=== PATIENT | male | born 1990 | race Caucasian/White ===

== ENCOUNTER 2019-06-27 23:30 | Emergency (ER) | payer OTHER ==
[~2019-06-27] VITALS: Ht 182.9 cm; Wt 99.8 kg
--- OUTSIDE RECORDS SUMMARY | 2019-06-27 23:32 | XMS REPORT | Clinical Summary ---
Author Author [facility] Address Unknown Phone Unavailable Care Team Providers Care Cyber Special Agent Name Role Phone Sharpless PCP Allergies No Known Allergies Medications End Date Status Medication Sig Dispensed Refills Start Date Active diazePAM (VALIUM) 5 MG Take 5 mg by 0 tablet mouth every 6 (six) hours as needed for Anxiety. Active traZODone (DESYREL) 100 Take 100 mg 0 MG tablet by mouth nightly. Active Problems Not on file Social History Date Tobacco Use Types Packs/Day Years Used Never Assessed Sex Assigned at Date Recorded Not on file Industry Job Start Date Occupation Not on file Not on file Not on file Travel End Travel History Travel Start No recent travel history available. Last Filed Vital Signs Not on file Plan of Treatment Not on file Results Not on fileafter 06/26/2018 Insurance Payer Benefit Subscriber ID Type Phone Address Plan / Group MEDICAID - MEDICAID [facility] xxxxxxxxx Medicaid CARE COMM STAR Contracted PLAN amily (Home) [place] [address]
--- OUTSIDE RECORDS SUMMARY | 2019-06-27 23:32 | XMS REPORT ---
Author [facility] Address Unknown Phone Unavailable Care Team Providers Care Social Insurance Specialist Name Role Phone Unavailable Unavailable Payers Payer Name Policy Type Policy Number Effective Date Expiration Date Problems This patient has no known problems. Allergies, Adverse Reactions, Alerts Allergy Name Allergy Type Status Severity Reaction(s) Onset Date Inactive Date Treating Clinician Comments No Known Allergies DA Active U 2017-08-01 00:00:00 Medications This patient has no known medications. Results Test Description Test Time Test Comments Text Results Atomic Results Result Comments - CT ABD PELVIS W/CONT 2019-03-02 00:13:00 Name: BOO CORDERO [facility] : 1990 Age/S: 28 / M [address] [facility] Unit #: [id number] Loc: [place] [address] Phys: Lio Miller DO Acct: [id number] Dis Date: Status: REG ER PHONE #: [phone] Exam Date: 03/01/2019 2354 FAX #: [phone] Reason: lower abd pain/rectal bleed EXAMS: CPT CODE: [id number] CT ABD PELVIS W/CONT 34485 EXAM: - CT ABD PELVIS W/CONT HISTORY: Lower abdominal pain. Rectal bleeding. TECHNIQUE: Axial tomograms through the abdomen and pelvis were obtained after intravenous contrast. Coronal and sagittal reformatted images are provided. This exam was performed according to our departmental dose-optimization program, which includes automated exposure control, adjustment of the mA and/or kV according to patient size and/or use of iterative reconstruction technique. COMPARISON: August 06, 2018. FINDINGS: The visualized lung bases are clear. The liver, spleen, pancreas, adrenal glands and kidneys demonstrate no significant abnormalities. The appendix has a normal appearance. The bowel is unremarkable. Detailed evaluation of bowel is limited on CT. There is no adenopathy or free fluid. The lateral canals are minimally open containing fat. There is no acute osseous abnormality. There is minimal degenerative disc disease at L5-S1 level. IMPRESSION: No significant abnormalities demonstrated. at 0013 Reported and signed by: Murtaza Damico MD PAGE 1 Signed Report (CONTINUED) Name: BOO CORDERO [facility] : 1990 Age/S: 28 / M [address] [facility] Unit #: [id number] Loc: [place] [address] Phys: Lio Miller DO Acct: [id number] Dis Date: Status: REG ER PHONE #: [phone] Exam Date: 03/01/2019 2354 FAX #: [phone] Reason: lower abd pain/rectal bleed EXAMS: CPT CODE: [id number] CT ABD PELVIS W/CONT [id number] <Continued> CC: Lio Miller DO Technologist:DALILA FAYE CTDI: DLP: Trnscb Date/Time: 03/02/2019 (0013) [email or web address] Orig Print D/T: S: 03/02/2019 (0016) CTDI: DLP: PAGE 2 Signed Report HEPATIC FUNCTION PANEL 2019-03-01 21:58:00 TOTAL PROTEIN (test code=PROT) 7.8 gram/dL 6.4-8.2 ALBUMIN (test code=ALB) 4.7 g/dL 3.4-5.0 GLOBULIN (test code=GLOB) 3.1 gram/dL 2.7-4.2 ALBUMIN/GLOBULIN RATIO (test code=A/G) 1.5 0.75-1.50 BILIRUBIN TOTAL (test code=BILT) 0.50 mg/dL 0.0-1.0 BILIRUBIN DIRECT (test code=BILD) 0.07 mg/dL 0.0-0.20 SGOT/AST (test code=AST) 42 IUnit/L 15-37 SGPT/ALT (test code=ALT) 41 IUnit/L 12-78 ALKALINE PHOSPHATASE TOTAL (test code=ALKP) 73 IUnit/L 45-117 Note change in reference range due to change in reagent. BASIC METABOLIC [id number] 20:42:00* Test Item Value Reference Range Comments SODIUM (test code=NA) 139 mmol/L 136-145 POTASSIUM (test code=K) 4.1 mmol/L 3.5-5.1 CHLORIDE (test code=CL) 105.0 mmol/L 98-107 CARBON DIOXIDE (test code=CO2) 28.0 mmol/L 21-32 ANION GAP (test code=GAP) 10.1 10-20 GLUCOSE (test code=GLU) 109 mg/dL 74-106 BLOOD UREA NITROGEN (test code=BUN) 10 mg/dL 7-18 GLOMERULAR FILTRATION RATE (test code=GFR) > 60 mL/min >=60 Estimated GFR by using Modified MDRD formula.Chronic kidney disease is defined as either kidney damageor GFR <60 mL/min/1.73 m2 for >3 months. CREATININE (test code=CREAT) 1.00 mg/dL 0.7-1.3 BUN/CREATININE RATIO (test code=BUN/CREA) 10.0 10-20 CALCIUM (test code=CA) 9.0 mg/dL 8.5-10.1 CBC W/O [id number] 20:26:00* Test Item Value Reference Range Comments WHITE BLOOD CELL (test code=WBC) 8.7 K/mm3 4.5-12.5 RED BLOOD CELL (test code=RBC) 5.12 mill/mm3 4.0-5.8 HEMOGLOBIN (test code=HGB) 15.8 gram/dL 13.0-17.5 HEMATOCRIT (test code=HCT) 46.4 % 42.0-52.0 MEAN CELL VOLUME (test code=MCV) 90.6 fL 80-98 MEAN CELL HGB (test code=MCH) 30.9 picogram 27.0-33.0 MEAN CELL HGB CONCETRATION (test code=MCHC) 34.1 gram/dL 33.0-36.0 RED CELL DISTRIBUTION WIDTH (test code=RDW) 12.5 % 11.6-16.2 PLATELET COUNT (test code=PLT) 206 K/mm3 150-450 MEAN PLATELET VOLUME (test code=MPV) 8.6 fL 6.7-11.0 CBC W/O [id number] 20:25:00* Test Item Value Reference Range Comments WHITE BLOOD CELL (test code=WBC) K/mm3 4.5-12.5 RED BLOOD CELL (test code=RBC) mill/mm3 4.0-5.8 HEMOGLOBIN (test code=HGB) 15.8 gram/dL 13.0-17.5 HEMATOCRIT (test code=HCT) 46.4 % 42.0-52.0 MEAN CELL VOLUME (test code=MCV) fL 80-98 MEAN CELL HGB (test code=MCH) picogram 27.0-33.0 MEAN CELL HGB CONCETRATION (test code=MCHC) gram/dL 33.0-36.0 RED CELL DISTRIBUTION WIDTH (test code=RDW) % 11.6-16.2 PLATELET COUNT (test code=PLT) K/mm3 150-450 MEAN PLATELET VOLUME (test code=MPV) fL 6.7-11.0
--- OUTSIDE RECORDS SUMMARY | 2019-06-27 23:32 | XMS REPORT ---
Author Author Admin, [place] Organization [facility] Adult Medicine Address [address] [address] Phone Allergies, Adverse Reactions, Alerts Allergy Name Reaction Description Start Date Severity Status Provider No Known Allergies Wes Gonzalez MD Conditions or Problems Problem Name Problem Code Onset Date Status Entry Date Provider Comment Standard Description Annotate PTSD Active Edwina Quintero LPC Posttraumatic stress disorder BIPOLAR I DISORDER, CURRENT EPISODE DEPRESSED, IN FULL REMISSION Active Wes Gonzalez MD Bipolar I disorder, most recent episode (or current) depressed, in full remission ANXIETY DISORDER, UNSPECIFIED Active Wes Gonzalez MD Anxiety state, unspecified Back pain 724.5 Active Chance Ibrahim DINING ROOM COORDINATOR-C Backache, unspecified Annual exam V70.0 Active Oumou George MD Routine general medical examination at a health care facility Preventive health care (Tdap) V70.0 Active Oumou George MD Routine general medical examination at a health care facility ANNUAL EXAM V70.0 Active Hillary Sanchez MD Routine general medical examination at a health care facility History of ARTHRALGIA 719.40 Active Hillary Sanchez MD Pain in joint, site unspecified seasonal association with winter BIPOLAR DISORDER NOS IN REMISSION 296.80 Active Wes Gonzalez MD Bipolar disorder, unspecified TOBACCO USER 305.1 Active Wes Gonzalez MD Tobacco use disorder BIPOLAR DISORDER NOS 296.80 Correction Wes Gonzalez MD Bipolar disorder, unspecified Acute Stress Disorder ICD-308.9 Inactive Wes Gonzalez MD BIPOLAR I DISORDER, CURRENT EPISODE DEPRESSED, IN FULL REMISSION Inactive Wes Gonzalez MD Drug seeking behavior ICD-304.90 Inactive Wes Gonzalez MD Influenza, Vaccination Against V04.81 Inactive Oumou George MD Need for prophylactic vaccination and inoculation against influenza Influenza, Vaccination Against ICD-V04.81 Inactive Gurdeep Meza ANXIETY STATE NOS ICD-300.00 Inactive Wse Gonzalez MD DEPRESSIVE DISORDER NOS ICD-311 Inactive Wes Gonzalez MD Acute Stress Disorder 308.9 Resolved Wes Gonzalez MD Unspecified acute reaction to stress BIPOLAR I DISORDER, CURRENT EPISODE DEPRESSED, IN FULL REMISSION Resolved Wes Gonzalez MD Bipolar I disorder, most recent episode (or current) depressed, in full remission Drug seeking behavior 304.90 Resolved Wes Gonzalez MD Unspecified drug dependence, unspecified use 09/23/15: Urine drug screen POSITIVE for Methadone ANXIETY STATE NOS 300.00 Resolved Wes Gonzalez MD Anxiety state, unspecified DEPRESSIVE DISORDER NOS 311 Resolved Wes Gonzalez MD Depressive disorder, not elsewhere classified Medication List Medication Instructions Start Date Stop Date Generic Name NDC Status Provider Patient Instruction DIAZEPAM 5 MG TABS TAKE ONE TABLET BY MOUTH FOUR TIMES DAILY NEEDED FOR ANXIETY DIAZEPAM 03872885652 Active Wes Gonzalez MD Active PRAZOSIN 2MG CAPSULES TAKE 1 CAPSULE BY MOUTH AT BEDTIME PRAZOSIN HCL 35391384176 Active Wes Gonzalez MD Active BUPROPION XL 150MG TABLETS (24 H) TAKE 1 TABLET BY MOUTH DAILY BUPROPION HCL 29075609324 Active Wes Gonzalez MD Active TRAZODONE 100MG TABLETS TAKE 2 TABLETS BY MOUTH AT BEDTIME TRAZODONE HCL 60751968908 Active Jazmine Ralph MD Active VALIUM 10 MG ORAL TABLET Take 1/2 tablet Three Times a Day. VALIUM 10 MG ORAL TABLET 424860 DIAZEPAM Inactive CARBAMAZEPINE ER 100 MG ORAL CAPSULE EXTENDED RELEASE 12 HOUR Take one capsule at bedtime. CARBAMAZEPINE ER 100 MG ORAL CAPSULE EXTENDED RELEASE 12 HOUR CARBAMAZEPINE Inactive ESCITALOPRAM OXALATE 10 MG ORAL TABLET Take 1/2 tablet daily for seven days then take 1 tablet daily thereafter. ESCITALOPRAM OXALATE 10 MG ORAL TABLET 975208 ESCITALOPRAM OXALATE Inactive PRAZOSIN HCL 1 MG ORAL CAPSULE Take one at bedtime. PRAZOSIN HCL 1 MG ORAL CAPSULE 115286 PRAZOSIN HCL Inactive SERTRALINE HCL 50 MG ORAL TABLET Take one-half tablet at bedtime for seven days then take one tablet at bedtime thereafter. SERTRALINE HCL 50 MG ORAL TABLET 357888 SERTRALINE HCL Inactive BENZTROPINE MESYLATE 0.5 MG ORAL TABLET Take one tablet at bedtime. BENZTROPINE MESYLATE 0.5 MG ORAL TABLET 168313 BENZTROPINE MESYLATE Inactive GEODON 20 MG ORAL CAPSULE Take one capsule daily. GEODON 20 MG ORAL CAPSULE 573079 ZIPRASIDONE HCL Inactive VALIUM 5 MG ORAL TABLET take 1 tablet tid as needed for anxiety VALIUM 5 MG ORAL TABLET 529498 DIAZEPAM Inactive ALPRAZOLAM 0.5 MG ORAL TABLET Take one or two tablets daily as needed for severe anxiety. ALPRAZOLAM 0.5 MG ORAL TABLET 483277 ALPRAZOLAM Inactive GEODON 20 MG ORAL CAPSULE Take one at bedtime in addition to geodon 40 mg at bedtime. GEODON 20 MG ORAL CAPSULE 562346 ZIPRASIDONE HCL Inactive GEODON 40 MG ORAL CAPSULE Take one capsules at bedtime. GEODON 40 MG ORAL CAPSULE 482792 ZIPRASIDONE HCL Inactive DIAZEPAM 5 MG ORAL TABLET Take one tablet Three Times a Day by mouth as Needed for anxiety. DIAZEPAM 5 MG ORAL TABLET 19750801 DIAZEPAM Inactive VALIUM 5 MG ORAL TABLET Take one tablet three times a day as needed for anxiety. VALIUM 5 MG ORAL TABLET 19750801 DIAZEPAM Inactive ATIVAN 1 MG ORAL TABLET Take one tablet twice daily. ATIVAN 1 MG ORAL TABLET 772756 LORAZEPAM Inactive VALIUM 5 MG ORAL TABLET Take 1 tablet three times daily as needed for anxiety. VALIUM 5 MG ORAL TABLET 19750801 DIAZEPAM Inactive TRAZODONE HCL 50 MG ORAL TABLET Take one half to one tablet at bedtime for sleep. TRAZODONE HCL 50 MG ORAL TABLET 196620 TRAZODONE HCL Inactive KLONOPIN 0.5 MG ORAL TABLET Take one tablet twice a day as needed for anxiety. KLONOPIN 0.5 MG ORAL TABLET 567739 CLONAZEPAM Inactive WELLBUTRIN XL 150 MG ORAL TABLET EXTENDED RELEASE 24 HOUR Take one tablet daily WELLBUTRIN XL 150 MG ORAL TABLET EXTENDED RELEASE 24 HOUR BUPROPION HCL Inactive VALIUM 5 MG ORAL TABLET Take one tablet twice a day as needed for anxiety. VALIUM 5 MG ORAL TABLET 19750801 DIAZEPAM Inactive WELLBUTRIN SR 200 MG ORAL TABLET EXTENDED RELEASE 12 HOUR Take one tablet daily. WELLBUTRIN SR 200 MG ORAL TABLET EXTENDED RELEASE 12 HOUR BUPROPION HCL Inactive ACETAMINOPHEN-CODEINE #3 300-30 MG ORAL TABLET 1-2 tablets by mouth every 4 hours as needed for pain ACETAMINOPHEN-CODEINE #3 300-30 MG ORAL TABLET ACETAMINOPHEN-CODEINE Inactive AMOXICILLIN 500 MG ORAL CAPSULE AMOXICILLIN 500 MG ORAL CAPSULE 804224 AMOXICILLIN Inactive BUSPIRONE HCL 15 MG ORAL TABLET Take one tablet at bedtime. May take an additional tablet during the day as needed for anxiety. BUSPIRONE HCL 15 MG ORAL TABLET 867322 BUSPIRONE HCL Inactive GEODON 60 MG ORAL CAPSULE Take one tab at bedtime in addition to geodon 40 mg capsule every morning. GEODON 60 MG ORAL CAPSULE 215664 ZIPRASIDONE HCL Inactive WELLBUTRIN SR 100 MG ORAL TABLET EXTENDED RELEASE 12 HOUR Take two tablets daily. WELLBUTRIN SR 100 MG ORAL TABLET EXTENDED RELEASE 12 HOUR BUPROPION HCL Inactive VALIUM 10 MG ORAL TABLET Take 1/2 tablet Three Times a Day. DIAZEPAM 02131839146 No Longer Active Wes Gonzalez MD Active CARBAMAZEPINE ER 100 MG ORAL CAPSULE EXTENDED RELEASE 12 HOUR Take one capsule at bedtime. CARBAMAZEPINE 72712368959 No Longer Active Wes Gonzalez MD Active ESCITALOPRAM OXALATE 10 MG ORAL TABLET Take 1/2 tablet daily for seven days then take 1 tablet daily thereafter. ESCITALOPRAM OXALATE 98283872175 No Longer Active Wes Gonzalez MD Active PRAZOSIN HCL 1 MG ORAL CAPSULE Take one at bedtime. PRAZOSIN HCL 83762683549 No Longer Active Wes Gonzalez MD Active SERTRALINE HCL 50 MG ORAL TABLET Take one-half tablet at bedtime for seven days then take one tablet at bedtime thereafter. SERTRALINE HCL 53373047970 No Longer Active Wes Gonzalez MD Active BENZTROPINE MESYLATE 0.5 MG ORAL TABLET Take one tablet at bedtime. BENZTROPINE MESYLATE 86757123319 No Longer Active Wes Gonzalez MD Active GEODON 20 MG ORAL CAPSULE Take one capsule daily. ZIPRASIDONE HCL 74048406831 No Longer Active Wes Gonzalez MD Active VALIUM 5 MG ORAL TABLET take 1 tablet tid as needed for anxiety DIAZEPAM 92768004484 No Longer Active Wes Gonzalez MD Active ALPRAZOLAM 0.5 MG ORAL TABLET Take one or two tablets daily as needed for severe anxiety. ALPRAZOLAM 95840581073 No Longer Active Laly Servin MD Active GEODON 20 MG ORAL CAPSULE Take one at bedtime in addition to geodon 40 mg at bedtime. ZIPRASIDONE HCL 65040608633 No Longer Active Wes Gonzalez MD Active GEODON 40 MG ORAL CAPSULE Take one capsules at bedtime. ZIPRASIDONE HCL 92370060458 No Longer Active Wes Gonzalez MD Active DIAZEPAM 5 MG ORAL TABLET Take one tablet Three Times a Day by mouth as Needed for anxiety. DIAZEPAM 76270918921 No Longer Active Wes Gonzalez MD Active VALIUM 5 MG ORAL TABLET Take one tablet three times a day as needed for anxiety. DIAZEPAM 52307241382 No Longer Active Wes Gonzalez MD Active ATIVAN 1 MG ORAL TABLET Take one tablet twice daily. LORAZEPAM 01940892694 No Longer Active Wes Gonzalez MD Active VALIUM 5 MG ORAL TABLET Take 1 tablet three times daily as needed for anxiety. DIAZEPAM 95153817772 No Longer Active Wes Gonzalez MD Active TRAZODONE HCL 50 MG ORAL TABLET Take one half to one tablet at bedtime for sleep. TRAZODONE HCL 32697340898 No Longer Active Wes Gonzalez MD Active KLONOPIN 0.5 MG ORAL TABLET Take one tablet twice a day as needed for anxiety. CLONAZEPAM 44231363155 No Longer Active Wes Gonzalez MD Active WELLBUTRIN XL 150 MG ORAL TABLET EXTENDED RELEASE 24 HOUR Take one tablet daily BUPROPION HCL 64033577870 No Longer Active Wes Gonzalez MD Active VALIUM 5 MG ORAL TABLET Take one tablet twice a day as needed for anxiety. DIAZEPAM 88075688015 No Longer Active Wes Gonzalez MD Active WELLBUTRIN SR 200 MG ORAL TABLET EXTENDED RELEASE 12 HOUR Take one tablet daily. BUPROPION HCL 85905583030 No Longer Active Wes Gonzalez MD Active ACETAMINOPHEN-CODEINE #3 300-30 MG ORAL TABLET 1-2 tablets by mouth every 4 hours as needed for pain ACETAMINOPHEN-CODEINE 57974760100 No Longer Active Wes Gonzalez MD Active AMOXICILLIN 500 MG ORAL CAPSULE AMOXICILLIN 11380290314 No Longer Active Oumou George MD Active BUSPIRONE HCL 15 MG ORAL TABLET Take one tablet at bedtime. May take an additional tablet during the day as needed for anxiety. BUSPIRONE HCL 04099229039 No Longer Active Wes Gonzalez MD Active GEODON 60 MG ORAL CAPSULE Take one tab at bedtime in addition to geodon 40 mg capsule every morning. ZIPRASIDONE HCL 31271271991 No Longer Active Wes Gonzalez MD Active WELLBUTRIN SR 100 MG ORAL TABLET EXTENDED RELEASE 12 HOUR Take two tablets daily. BUPROPION HCL 75327705315 No Longer Active Wes Gonzalez MD Active Immunizations Vaccine Administration Date Value Standard Description influenza immunization (Flu Vax) has been administered given influenza virus vaccine, unspecified formulation Tetanus toxoid, reduced diphtheria toxoid and acellular Pertussis vaccine, absorbed (TdaP) given given tetanus toxoid, reduced diphtheria toxoid, and acellular pertussis vaccine, adsorbed Vital Signs Date Name Value Unit Range Description blood pressure, diastolic 86 mm[Hg] BP rosa blood pressure, systolic 136 mm[Hg] BP sys height E&M 71 [in_us] Bdy height pulse rate E&M 116 /min Heart rate weight E&M 235.20 [lb_av] Weight Measured blood pressure, diastolic 84 mm[Hg] BP rosa blood pressure, systolic 131 mm[Hg] BP sys height E&M 71 [in_us] Bdy height pulse rate E&M 78 /min Heart rate weight E&M 240.60 [lb_av] Weight Measured blood pressure, diastolic 89 mm[Hg] BP rosa blood pressure, systolic 114 mm[Hg] BP sys height E&M 71 [in_us] Bdy height pulse rate E&M 84 /min Heart rate weight E&M 235.20 [lb_av] Weight Measured blood pressure, diastolic 84 mm[Hg] BP rosa blood pressure, systolic 138 mm[Hg] BP sys height E&M 71 [in_us] Bdy height pulse rate E&M 97 /min Heart rate weight E&M 227.40 [lb_av] Weight Measured blood pressure, diastolic 85 mm[Hg] BP rosa blood pressure, systolic 123 mm[Hg] BP sys height E&M 71 [in_us] Bdy height pulse rate E&M 114 /min Heart rate weight E&M 218.20 [lb_av] Weight Measured blood pressure, diastolic 75 mm[Hg] BP rosa blood pressure, systolic 109 mm[Hg] BP sys height E&M 71 [in_us] Bdy height pulse rate E&M 91 /min Heart rate weight E&M 219.20 [lb_av] Weight Measured Diagnostic Results Date Name Value Unit Range Description Lab Report: DRUG AND ALCOHOL SCREEN, S/P, DRUG ABUSE PANEL 9, SERUM, [place] ... - Toxicology benzodiazepine screen, urine POSITIVE Lab Report: CBC With Differential/Platelet, Comp. Metabolic Panel (14), ... - Chemistry thyroid stimulating hormone, serum 1.050 u[iU]/mL 0.450-4.500 Lab Report: DRUG AND ALCOHOL SCREEN, S/P, DRUG ABUSE PANEL 9, SERUM, [place] ... - Urinalysis Methadone screen, urine NEGATIVE Lab Report: CBC With Differential/Platelet, Comp. Metabolic Panel (14), ... - Chemistry very low density lipoproteins 27 mg/dL 5-40 Lab Report: TSH+Free T4, CBC With Differential/Platelet, Comp. Metabolic ... - Chemistry hepatitis B surface antigen Negative Negative Lab Report: DRUG AND ALCOHOL SCREEN, S/P, DRUG ABUSE PANEL 9, [facility]UM, [place] ... - Toxicology phencyclidine screen, urine NEGATIVE ng/mL Lab Report: CBC With Differential/Platelet, Comp. Metabolic Panel (14), ... - Chemistry chloride, serum 98 mmol/L 97-108 urea nitrogen, blood 8 mg/dL 6-20 Lab Report: TSH+Free T4, CBC With Differential/Platelet, Comp. Metabolic ... - Serology HIV-1/HIV-2 Ab, serum Non Reactive Non Reactive Lab Report: CBC With Differential/Platelet, Comp. Metabolic Panel (14), ... - Hematology Quantiferon Gold TB blood test for tuberculosis screening Negative Negative mean corpuscular hemoglobin concentration, RBC 34.0 G/DL % 31.5-35.7 Lab Report: TSH+Free T4, CBC With Differential/Platelet, Comp. Metabolic ... - Serology antinuclear antibody Negative Negative Lab Report: CBC With Differential/Platelet, Comp. Metabolic Panel (14), ... - Hematology erythrocyte (RBC) count 4.77 X10E6/UL 10*6/mm3 4.14-5.80 Lab Report: CBC With Differential/Platelet, Comp. Metabolic Panel (14), ... - Serology hepatitis C antibody, serum <0.1 0.0-0.9 Lab Report: CBC With Differential/Platelet, Comp. Metabolic Panel (14), ... - Chemistry Absolute Neutrophils 5.3 X10E3/UL 10*3/uL 1.4-7.0 Lab Report: CBC With Differential/Platelet, Comp. Metabolic Panel (14), ... - Hematology erythrocyte sedimentation rate 12 mm/h 0-15 Lab Report: CBC With Differential/Platelet, Comp. Metabolic Panel (14), ... - Chemistry LDL cholesterol, serum 78 mg/dL 0-99 urea nitrogen/creatinine ratio, serum 7 8-19 Lab Report: CBC With Differential/Platelet, Comp. Metabolic Panel (14), ... - Hematology mean corpuscular volume, RBC 89 fL 79-97 Nurse Visit: Lab/ X-Ray Only - Urinalysis Ecstasy (MDMA) Screen, urine Negative Lab Report: CBC With Differential/Platelet, Comp. Metabolic Panel (14), ... - Chemistry HDL cholesterol, serum 35 mg/dL >39 Lab Report: DRUG ABUSE PANEL 10-50 + ETHANOL - Chemistry alcohol, urine NEGATIVE mg/dL Nurse Visit: Lab/ X-Ray Only - Urinalysis Oxycodone urine screening Negative Lab Report: CBC With Differential/Platelet, Comp. Metabolic Panel (14), ... - Hematology monocytes as percent of blood leukocytes 5 % Lab Report: CBC With Differential/Platelet, Comp. Metabolic Panel (14), ... - Chemistry albumin/globulin ratio, serum 1.8 1.1-2.5 creatinine, serum 1.21 mg/dL 0.76-1.27 Lab Report: DRUG AND ALCOHOL SCREEN, S/P, DRUG ABUSE PANEL 9, [facility]UM, [place] ... - Toxicology methaqualone screen, urine NEGATIVE ng/mL Lab Report: CBC With Differential/Platelet, Comp. Metabolic Panel (14), ... - Chemistry cholesterol, serum 140 mg/dL 092-715 8771/10/27 bilirubin, serum, total 0.4 mg/dL 0.0-1.2 Lab Report: CBC With Differential/Platelet, Comp. Metabolic Panel (14), ... - Hematology Eosinophil Absolute Count 0.2 X10E3/UL 10*3/uL 0.0-0.4 Lab Report: Chlamydia/GC Amplification - Lab chlamydia DNA probe Negative Negative Lab Report: CBC With Differential/Platelet, Comp. Metabolic Panel (14), ... - Chemistry aspartate aminotransferase (SGOT), serum 23 U/L 0-40 Lab Report: CBC With Differential/Platelet, Comp. Metabolic Panel (14), ... - Hematology red blood cell distribution width 13.7 % 12.3-15.4 leukocyte count, blood 8.1 X10E3/UL 10*3/mm3 3.4-10.8 Lab Report: CBC With Differential/Platelet, Comp. Metabolic Panel (14), ... - Chemistry potassium, serum 3.9 mmol/L 3.5-5.2 albumin, serum 4.8 g/dL 3.5-5.5 immature granulocytes, percentage of total cells, blood 0 % Lab Report: DRUG AND ALCOHOL SCREEN, S/P, DRUG ABUSE PANEL 9, [facility]UM, [place] ... - Toxicology opiates, urine, semiquantitative NEGATIVE Lab Report: CBC With Differential/Platelet, Comp. Metabolic Panel (14), ... - Hematology lymphocyte count, blood, automated 2.2 X10E3/UL 10*3/mm3 0.7-3.1 hematocrit, blood 42.6 % 37.5-51.0 Lab Report: Chlamydia/GC Amplification - Microbiology Neisseria gonorrhoeae DNA probe Negative Negative Lab Report: CBC With Differential/Platelet, Comp. Metabolic Panel (14), ... - Chemistry sodium, serum 139 mmol/L 134-144 Lab Report: DRUG AND ALCOHOL SCREEN, S/P, DRUG ABUSE PANEL 9, SERUM, [place] ... - Toxicology amphetamine screen, urine NEGATIVE Lab Report: CBC With Differential/Platelet, Comp. Metabolic Panel (14), ... - Hematology neutrophils as percent of blood leukocytes 66 % basophils as percent of blood leukocytes 0 % Lab Report: DRUG AND ALCOHOL SCREEN, S/P, DRUG ABUSE PANEL 9, SERUM, [place] ... - Chemistry propoxyphene screen, urine NEGATIVE Lab Report: CBC With Differential/Platelet, Comp. Metabolic Panel (14), ... - Serology rapid plasma reagin antibody, serum Non Reactive Non Reactive Lab Report: DRUG AND ALCOHOL SCREEN, S/P, DRUG ABUSE PANEL 9, SERUM, [place] ... - Chemistry cannabinoid screen, urine NEGATIVE ng/mL Lab Report: CBC With Differential/Platelet, Comp. Metabolic Panel (14), ... - Chemistry carbon dioxide, venous blood 21 mmol/L 18-29 triglyceride, serum, fasting 134 mg/dL 0-149 calcium, serum 9.3 mg/dL 8.7-10.2 alanine aminotransferase (SGPT), serum 25 U/L 0-44 Lab Report: CBC With Differential/Platelet, Comp. Metabolic Panel (14), ... - Hematology mean corpuscular hemoglobin, RBC 30.4 pg 26.6-33.0 Lab Report: CBC With Differential/Platelet, Comp. Metabolic Panel (14), ... - Chemistry protein, total, serum 7.5 g/dL 6.0-8.5 alkaline phosphatase, serum 68 U/L 39-117 Lab Report: CBC With Differential/Platelet, Comp. Metabolic Panel (14), ... - Hematology hemoglobin, blood 14.5 g/dL 12.6-17.7 lymphocytes as percent of blood leukocytes 27 % Lab Report: CBC With Differential/Platelet, Comp. Metabolic Panel (14), ... - Chemistry hemoglobin A1C, blood, as % of total hemoglobin 5.3 % 4.8-5.6 Lab Report: DRUG AND ALCOHOL SCREEN, S/P, DRUG ABUSE PANEL 9, [place], [place] ... - Toxicology barbiturates screen, urine NEGATIVE Lab Report: CBC With Differential/Platelet, Comp. Metabolic Panel (14), ... - Genetics/fertility eGFR if 96 mL/min/1.73m2 >59 Lab Report: DRUG AND ALCOHOL SCREEN, S/P, DRUG ABUSE PANEL 9, [place], [place] ... - Urinalysis Drug Screen Results, Urine * These results are for medical treatment only.... Lab Report: CBC With Differential/Platelet, Comp. Metabolic Panel (14), ... - Hematology basophil count, absolute 0.0 x10E3/uL 0.0-0.2 Lab Report: TSH+Free T4, CBC With Differential/Platelet, Comp. Metabolic ... - Chemistry thyroxine, serum, free 1.17 ng/dL 0.82-1.77 Lab Report: CBC With Differential/Platelet, Comp. Metabolic Panel (14), ... - Chemistry globulin, serum 2.7 1.5-4.5 Estimated Glomerular Filtration Rate (calc) 83 mL/min/1.73m2 >59 Lab Report: TSH+Free T4, CBC With Differential/Platelet, Comp. Metabolic ... - Chemistry vitamin D 25-hydroxy, serum 28.8 ng/mL 30.0-100.0 Lab Report: CBC With Differential/Platelet, Comp. Metabolic Panel (14), ... - Hematology eosinophils as percent of blood leukocytes 2 % Lab Report: CBC With Differential/Platelet, Comp. Metabolic Panel (14), ... - Chemistry blood glucose, random 85 mg/dL 65-99 Lab Report: CBC With Differential/Platelet, Comp. Metabolic Panel (14), ... - Serology rheumatoid factor 6.6 [iU]/mL 0.0-13.9 Lab Report: CBC With Differential/Platelet, Comp. Metabolic Panel (14), ... - Hematology monocyte count, blood, automated 0.4 X10E3/UL 10*3/uL 0.1-0.9 Lab Report: DRUG AND ALCOHOL SCREEN, S/P, DRUG ABUSE PANEL 9, [facility]UM, [place] ... - Toxicology benzoylecgonine screen, urine NEGATIVE ng/mL Lab Report: CBC With Differential/Platelet, Comp. Metabolic Panel (14), ... - Hematology platelet count 210 X10E3/UL 10*3/mm3 150-379 Encounters Date Encounter Provider Code Facility 17:21:31 CDT Est Patient Detailed - [id number] Wes Gonzalez MD CPT-45459 [facility] 16:37:01 CDT Est Patient Detailed - [id number] Wes Gonzalez MD CPT-94964 [facility] 12:18:22 CDT Est Patient Detailed - [id number] Wes Gonzalez MD CPT-58745 [facility] 12:36:59 [employer] Est Patient Detailed - 35477 Wes Gonzalez MD CPT-28633 [facility] 15:18:02 CDT Est Patient Detailed - [id number] Wes Gonzalez MD CPT-55254 [facility] 14:48:32 CDT Est Patient Detailed - 08886 Wes Gonzalez MD CPT-94571 [facility] 14:03:37 CDT Est Patient Exp Problem - 75580 Wes Gonzalez MD CPT-97701 [facility] 18:08:28 CDT Est Patient Detailed - 51898 Wes Gonzalez MD CPT-60791 [facility] 08:42:47 CDT Est Patient Detailed - 07969 Wes Gonzalez MD CPT-63030 [facility] 15:23:50 [employer] Est Patient Detailed - 43041 Wes Gonzalez MD CPT-45296 [facility] 15:45:57 [employer] Est Patient Detailed - [id number] Wes Gonzalez MD CPT-20074 [facility] 16:40:23 [employer] Est Patient Detailed - 70411 Wes Gonzalez MD CPT-39350 [facility] 17:19:00 CDT Est Patient Exp Problem - 11175 Wes Gonzalez MD CPT-73079 [facility] 14:55:14 CDT Est Patient Exp Problem - 76380 Wes Gonzalez MD CPT-61496 [facility] 13:51:49 [employer] Est Patient Exp Problem - [id number] Wes Gonzalez MD CPT-18046 [facility] 15:27:16 [employer] Est Patient Exp Problem - 51261 Wes Gonzalez MD CPT-32090 [facility] 15:23:00 [employer] Est Patient Exp Problem - 05003 Wes Gonzalez MD CPT-74713 [facility] 15:37:00 CDT Est Patient Exp Problem - 60788 Wes Gonzalez MD CPT-80506 [facility] 15:15:15 CDT Est Patient Exp Problem - 59849 Wes Gonzalez MD CPT-91979 [facility] 10:29:27 CDT Est Patient Exp Problem - 76766 Chance Ibrahim DINING ROOM COORDINATOR-C CPT-55943 [facility] 16:24:35 CDT Est Patient Exp Problem - 53254 Wes Gonzalez MD CPT-09119 [facility] 12:35:34 [employer] Est Patient Exp Problem - 80185 Wes Gonzalez MD CPT-01590 [facility] 15:22:17 [employer] Est Patient Exp Problem - 86842 Wes Gonzalez MD CPT-49392 [facility] 09:25:32 [employer] Est Patient Exp Problem - 79189 Wes Gonzalez MD CPT-23735 [facility] 10:57:40 CDT Est Patient Detailed - 18347 Oumou George MD CPT-99150 [facility] 13:34:26 CDT Est Patient Exp Problem - 79433 Wes Gonzalez MD CPT-82637 [facility] 13:32:45 CDT Est Patient Exp Problem - 90734 Wes Gonzalez MD CPT-85492 [facility] 11:08:30 [employer] Est Patient Exp Problem - 32858 Wes Gonzalez MD CPT-52107 [facility] 14:35:09 [employer] Est Patient Exp Problem - 66267 Wes Gonzalez MD CPT-54741 [facility] 14:21:17 [employer] Est Patient Exp Problem - 21118 Wes Gonzalez MD CPT-90116 [facility] 16:47:53 CDT Est Patient Exp Problem - 99353 Wes Gonzalez MD CPT-00188 [facility] Behavioral Health 11:22:03 CDT Est Patient Problem Focus - [id number] Hillary Sanchez MD CPT-26265 [facility] Adult Medicine 15:11:51 CDT Est Patient Exp Problem - [id number] Wes Gonzalez MD CPT-04710 [facility] Behavioral Health 16:38:04 CDT Est Patient Exp Problem - [id number] Wes Gonzalez MD CPT-21105 [facility] 16:41:27 CDT Est Patient Exp Problem - 70611 Wes Gonzalez MD CPT-81440 [facility] Behavioral Health 16:05:31 [employer] Est Patient Exp Problem - [id number] Wes Gonzalez MD CPT-57579 [facility] Behavioral Health 12:11:08 CDT Est Patient Exp Problem - [id number] Wes Gonzalez MD CPT-75886 [facility] 08:21:21 CDT Est Patient Exp Problem - 57503 Wes Gonzalez MD CPT-44749 [facility] 13:13:51 CDT Est Patient Exp Problem - 30304 Wes Gonzalez MD CPT-07253 [facility] 16:41:21 CDT Est Patient Exp Problem - [id number] Wes Gonzalez MD CPT-00121 [facility] 20:35:14 CDT Est Patient Detailed - 14034 Wes Gonzalez MD CPT-65915 [facility] 20:58:45 CDT Est Patient Detailed - [id number] Wes Gonzalez MD CPT-49588 [facility] Behavioral Health Procedures Code Procedure Name Date Entry Date Standard Description CPT-04558 Psychotherapy 45 (38-52*) min - 59172 (with patient and/or family member) 09:07:01 CDT CPT-17404 Psychotherapy 45 (38-52*) min - 02751 (with patient and/or family member) 09:34:13 CDT CPT-93706 Psychotherapy 45 (38-52*) min - 95185 (with patient and/or family member) 22:22:15 [employer] CPT-08837 Psychotherapy 45 (38-52*) min - 36938 (with patient and/or family member) 21:12:14 [employer] CPT-81538 Psychotherapy 60 (53+*) min - 45700 (with patient and/or family member) 20:39:47 [employer] CPT-21376 Diagnostic evaluation (no medical) - 06178 12:42:59 [employer] CPT-70248 Influenza - Adult - Injection 10:58:02 CDT CPT-95827 TDAP 10:58:02 CDT CPT-27417 Admin of Vaccine - Injection - Each Add'l 10:58:02 CDT CPT-03913 Admin of Vaccine - Injection - 1 10:58:02 CDT CPT-67897 Urine Drug Screen - In House 14:30:46 CDT CPT-87370 Urine Drug Screen - In House 14:29:20 CDT CPT-87839 Urine Drug Screen - In House 14:22:24 CDT CPT-09871 Handling of specimen for transfer 10:57:42 CDT CPT-67122 Venipuncture 10:57:42 CDT CPT-64923 Urine Drug Screen - In House 10:57:41 CDT CPT-01274 Urinalysis - Dip only - In House 10:57:41 CDT CPT-43657 Handling of specimen for transfer 11:22:03 CDT CPT-27218 Venipuncture 11:22:03 CDT CPT-53642 Psychotherapy 45 (38-52*) min - 27105 (with patient and/or family member) 14:42:42 [employer] CPT-91238 Psychotherapy 45 (38-52*) min - 69200 (with patient and/or family member) 16:15:15 [employer] CPT-99784 Diagnostic evaluation (no medical) - 73767 15:37:20 CDT CPT-33676 Diagnostic evaluation with medical - 85967 11:58:55 CDT
[2019-06-27] MEDS: DICYCLOMINE HCL 20 MG/2 ML VIAL IM ONE (23:48)
[2019-06-27] MEDS: ACETAMINOPHEN 325 MG TAB PO ONE (23:48)
[2019-06-27] MEDS: PANTOPRAZOLE 40 MG 10ML VIAL IV STA (23:48)
--- NOTE | 2019-06-27 23:53 | NUR ---
PT TO RESTROOM FOR URINE COLLECTION.
[2019-06-27 23:57] LABS: BASOPHILS % 0.1 % (0.0-1.0); EOSINOPHILS # (AUTO) 0.1 (0.0-0.4); EOSINOPHILS % 0.9 % (0.0-6.0); HEMATOCRIT 47.8 % (38.2-49.6); HEMOGLOBIN 16.2 g/dL (14.0-18.0); LYMPHOCYTES # (AUTO) 0.8 (1.0-3.2); LYMPHOCYTES % 8.4 % (18.0-39.1); MEAN CORPUSCULAR HEMOGLOBIN 30.1 pg (28-32); MEAN CORPUSCULAR HGB CONC 33.9 g/dL (31-35); MEAN CORPUSCULAR VOLUME 88.7 fL (81-99); MONOCYTES # (AUTO) 0.3 (0.2-0.8); MONOCYTES % 3.7 % (4.4-11.3); NEUTROPHILS # (AUTO) 7.7 (2.1-6.9); NEUTROPHILS % 86.6 % (38.7-80.0); PLATELET COUNT 175 x10e3/uL (140-360); RED BLOOD COUNT 5.39 x10e6/uL (4.3-5.7); RED CELL DISTRIBUTION WIDTH 12.1 % (11.7-14.4)
[2019-06-28 00:15] LABS: BILIRUBIN,URINE SMALL (NEGATIVE); CLARITY,URINE CLEAR (CLEAR); COLOR,URINE YELLOW (YELLOW); KETONES,URINE NEGATIVE (NEGATIVE); LEUKOCYTE ESTERASE ,URINE NEGATIVE (NEGATIVE); NITRITE,URINE NEGATIVE (NEGATIVE); PROTEIN,URINE DIPSTICK NEGATIVE (NEGATIVE); URINE UROBILINOGEN 0.2 mg/dL (0.2 - 1)
--- NOTE | 2019-06-28 00:26 | Diagnostic Imaging Report ---
EXAMINATION: ABDOMEN ACUTE SERIES W/PA CXR INDICATION: ^abd pain ^[id number] ^2355 ^Y COMPARISON: None FINDINGS: PA and lateral views TUBES and LINES: None. LUNGS: Lungs are well inflated. There is no evidence of pneumonia or pulmonary edema. PLEURA: No pleural effusion or pneumothorax. HEART AND MEDIASTINUM: The cardiomediastinal silhouette is unremarkable. BONES AND SOFT TISSUES: No acute osseous lesion. Soft tissues are unremarkable. ABDOMEN: Nonobstructive bowel gas pattern. No evidence of pneumoperitoneum. IMPRESSION: Nonobstructive bowel gas pattern. No acute thoracic abnormality. Signed by: Dr. Preston Goodwin MD on 06/28/2019 12:23 AM
[2019-06-28 00:27] LABS: ALANINE AMINOTRANSFERASE 38 IU/L (0-55); ALBUMIN 4.8 g/dL (3.5-5.0); ALBUMIN/GLOBULIN RATIO 1.5 (0.8-2.0); ALKALINE PHOSPHATASE 72 IU/L (40-150); ANION GAP 15.8 mmol/L (8-16); BLOOD UREA NITROGEN 15 mg/dL (7-26); BUN/CREATININE RATIO 14 (6-25); CALCIUM 9.8 mg/dL (8.4-10.2); CARBON DIOXIDE 27 mmol/L (22-29); CHLORIDE 101 mmol/L (98-107); CREATININE, SERUM 1.07 mg/dL (0.72-1.25); EST GLOMERULAR FILTRATION RATE > 60 ML/MIN (60-); GLUCOSE 82 mg/dL (74-118); POTASSIUM 3.8 mmol/L (3.5-5.1); SODIUM 140 mmol/L (136-145)
[2019-06-28 00:27] LABS: BACTERIA,URINE MODERATE /HPF; EPITHELIAL CELLS,URINE FEW /LPF; MUCUS,URINE MANY (RARE)
[2019-06-28 00:28] LABS: PHENCYCLIDINE SCREEN,URINE NEGATIVE (NEGATIVE)
[2019-06-28 00:29] LABS: AMPHETAMINES SCREEN,URINE NEGATIVE (NEGATIVE); BENZODIAZEPINES SCREEN,URINE POSITIVE (NEGATIVE)
[2019-06-28 00:50] LABS: AMYLASE 52 U/L (25-125); LIPASE 39 U/L (8-78)
[2019-06-28] MEDS ORDERED: TYLENOL # 31 EA PO (00:52)
[2019-06-28] MEDS ORDERED: PRAZOSIN HCL2 MG PO (00:52)
[2019-06-28] MEDS ORDERED: BUTALB-ACETAMI1 EACH PO (00:52)
[2019-06-28] MEDS ORDERED: TRAZODONE HCL100 MG PO (00:52)
[2019-06-28] MEDS ORDERED: DIAZEPAM5 MG PO (00:52)
[2019-06-28] MEDS ORDERED: BUPROPION XL150 MG PO (00:52)
== END 2019-06-28 01:28 | disposition home or self-care (01) ==
LOC: ER 23:30
DX: R10.13 Epigastric pain (principal); A08.4 Viral intestinal infection, unspecified; F32.9 Major depressive disorder, single episode, unspecified; F43.12 Post-traumatic stress disorder, chronic
CPT/HCPCS: 36415; 74022; 80053; 80307; 81001; 82150; 83690; 85025; 96372; 96374; 99284; J0500

== ENCOUNTER 2019-09-16 02:47 | Emergency (ER) | payer OTHER ==
[~2019-09-16] VITALS: Ht 182.9 cm; Wt 99.8 kg
[~2019-09-16 02:47] MED LIST: BUPROPION XL150 MG PO; BUTALB-ACETAMI1 EACH PO; DIAZEPAM5 MG PO; PRAZOSIN HCL2 MG PO; TRAZODONE HCL100 MG PO; TYLENOL # 31 EA PO
--- OUTSIDE RECORDS SUMMARY | 2019-09-16 02:51 | XMS REPORT ---
Author Author Admin, [place] Organization Unknown Address Unknown Phone Unavailable PROBLEMS Condition Status Date Provider Notes PTSD active Edwina Quintero Acute Stress Disorder completed - Wes Gonzalez BIPOLAR I DISORDER, CURRENT EPISODE DEPRESSED, IN FULL REMISSION active Wes Gonzalez ANXIETY DISORDER, UNSPECIFIED active Wes Gonzalez BIPOLAR I DISORDER, CURRENT EPISODE DEPRESSED, IN FULL REMISSION completed - Wes Gonzalez Back pain active Chance Ibrahim Preventive health care (Tdap) active Gurdeep Meza Influenza, Vaccination Against completed - Gurdeep Meza Drug seeking behavior completed - Wes Gonzalez 09/23/15: Urine drug screen POSITIVE for Methadone Annual exam active Gurdeep Meza ANNUAL EXAM active Hillayr Sanchez ARTHRALGIA active Hillary Sanchez seasonal association with winter ANXIETY STATE NOS completed - Wes Gonzalez DEPRESSIVE DISORDER NOS completed - Wes Gonzalez BIPOLAR DISORDER NOS IN REMISSION active Wes Gonzalez ENCOUNTERS Date Type Provider Location Encounter Diagnosis - Ambulatory Encounter Edwina Quintero [facility] UNK - Ambulatory Encounter Wes Gonzalez [facility] UNK - Ambulatory Encounter Thida Gilliland [facility] UNK - Ambulatory Encounter Wes Gonzalez Thida Gilliland Sherry Carrillo [facility] UNK - Ambulatory Encounter Wes Gonzalez [facility] Behavior[facility] UNK - Ambulatory Encounter Wes Masters Wes Masters Alison Faustin [facility] UNK - Ambulatory Encounter Thida Gilliland [facility] Contact Center UNK - Ambulatory Encounter Wes Masters Wes Masters Thida Gilliland Mallory Weems [facility] Contact Center UNK - Ambulatory Encounter Thida Gilliland [facility] Contact Center UNK - Ambulatory Encounter Wes Masters Wes Masters Thida Gilliland Mallory Weems [facility] Contact Center UNK - Ambulatory Encounter Wes Masters Wes Masters [facility] Behavioral [facility] UNK - Ambulatory Encounter Wes Masters Wes Masters [facility] Behavioral [facility] UNK - Ambulatory Encounter Wes Masters Wes Masters [facility] Behavior[facility] UNK - Ambulatory Encounter Wes Masters Wes Masters Monico Ayesha [facility] Behavior[facility] UNK - Ambulatory Encounter Wes Masters Wes Masters Jazmine Ralph [facility] Behavior[facility] UNK - Ambulatory Encounter Thida Gilliland [facility] Behavior[facility] UNK - Ambulatory Encounter Wes Masters Wes Masters Thida Gilliland [facility] Behavior[facility] UNK - Ambulatory Encounter Ews Masters Wes Masters [facility] Behavior[facility] UNK - Ambulatory Encounter Wes Masters Wes Masters Monico Ayesha [facility] Behavior[facility] UNK - Ambulatory Encounter Wes Masters Wes Masters [facility] Behavior[facility] UNK - Ambulatory Encounter Wes Masters Wes Masters [facility] Behavior[facility] UNK - Ambulatory Encounter Wes Masters Wes Masters [facility] Behavior[facility] UNK - Ambulatory Encounter Wes Masters Wes Masters [facility] Behavior[facility] UNK - Ambulatory Encounter Thida Gilliland [facility] Contact Center UNK - Ambulatory Encounter Wes Masters Wes Masters Thida Gilliland Roberta Camejo [facility] Contact Center UNK - Ambulatory Encounter Wes Masters Wes Masters [facility] Behavioral [facility] UNK - Ambulatory Encounter Wes Masters Wes Masters Lio Sandhu Monico Ayesha [facility] Behavioral [facility] UNK - Ambulatory Encounter Thida Gilliland [facility] Behavior[facility] UNK - Ambulatory Encounter Wes Masters Wes Masters Thida Gilliland Monico Ayesha [facility] Behavioral [facility] UNK - Ambulatory Encounter Wes Masters Wes Masters Monico Ayesha [facility] Behavioral [facility] UNK - Ambulatory Encounter Wes Masters Wes [facility] Ambulatory Encounter Jazmine Ralph [facility] Behavior[facility] UNK - Ambulatory Encounter Wes Masters Wes Masters Jazmine Ralph [facility] Behavior[facility] UNK - Ambulatory Encounter Wes Masters Wes Castros [facility] Behavior[facility] UNK - Ambulatory Encounter Wes Masters Wes Masters Anny Mitchell [facility] Contact Center UNK - Ambulatory Encounter Thida Gilliland [facility] Behavior[facility] UNK - Ambulatory Encounter Wes Masters Wes Masters Thida Gilliland [facility] Behavior[facility] UNK - Ambulatory Encounter Wes Masters Wes Masters Velma Bey Thida Gilliland Bernadette Michel [facility] Contact Center UNK - Ambulatory Encounter Wes Masters Wes Masters [facility] Behavioral [facility] UNK - Ambulatory Encounter Thida Gilliland [facility] Contact Center UNK - [facility] - Ambulatory Encounter Wes Masters Wes Masters [facility] UNK - Ambulatory Encounter Wes Masters Wes Masters Thida Gilliland Corina Olivas [facility] Contact Center UNK - Ambulatory Encounter Shrery Carrillo [facility] UNK - Ambulatory Encounter Wes Masters Wes Masters Clarissa Bey [facility] UNK - Ambulatory Encounter Wes Masters Wes Masters [facility] Behavior[facility] UNK - Ambulatory Encounter Monico Ayesha [facility] Contact Center UNK - Ambulatory Encounter Corina Olivas [facility] Contact Center UNK - Ambulatory Encounter Wes Masters Wes Masters [facility] Behavior[facility] UNK - Ambulatory Encounter Wes Masters Wes Masters [facility] Behavior[facility] UNK - Ambulatory Encounter Monico Ayesha [facility] Contact Center UNK - Ambulatory Encounter Wes Masters Wes Masters [place]ico Ayesha Corina Olivas Tika Ling [facility] Contact Center UNK - Ambulatory Encounter Wes Masters Wes Masters [facility] UNK - Ambulatory Encounter Wes Masters Wes Masters [employer] [facility] Behavior[facility] UNK - Ambulatory Encounter Wes Masters Wes Masters Thida Gilliland [facility] Behavior[facility] Acute Stress Disorder - Ambulatory Encounter Edwina Quintero [facility] UNK - Ambulatory Encounter Wes Masters Wes Masters [facility] Behavior[facility] UNK - Ambulatory Encounter Wes s Wes Masters [facility] UNK - Ambulatory Encounter Wes Lisa Harvey Masters [employer] [facility] UNK - Ambulatory Encounter Wes Masters Wes Masters [employer] [facility] Behavior[facility] UNK - Ambulatory Encounter Wes Mastertha Harvey Masters Monico Ayesha Angeles Estrada [facility] Behavior[facility] Health UNK - Ambulatory Encounter Edwina Ingrid Edwina Ingrid [facility] PTSD - Ambulatory Encounter Day Doty [facility] UNK - Ambulatory Encounter Ortegamiranda JamesJerrell [facility] Behavior[facility] UNK - Ambulatory Encounter Wes Lisa Harvey Masters [employer] Ortega Jerrell [facility] Behavioral [facility] UNK - Ambulatory Encounter Wes Mastertha Harvey [facility] Behavior[facility] UNK - Ambulatory Encounter Wes Mastertha Harvey Masters [employer] [facility] Behavior[facility] UNK - Ambulatory Encounter Wes Lisa Harvey Masters Mayelada Gilliland [facility] Behavior[facility] UNK - Ambulatory Encounter Wes Lisa Harvey Masters Monico Hodge [facility] Behavior[facility] UNK - Ambulatory Encounter Edwina Ingrid Edwinaangie Quintero [facility] UNK - Ambulatory Encounter Wes Lisa Harvey Masters [facility]al [facility] UNK - Ambulatory Encounter Wes Lisa Harvey Masters [employer] [facility] Behavior[facility] UNK - Ambulatory Encounter Wes Mastertha Harvey Masters Lio Sandhu [facility] Behavior[facility] UNK - Ambulatory Encounter Wes Lisa Castros Alia Loera [facility] Behavioral [facility] UNK - Ambulatory Encounter Wes Lisa [facility] UNK - Ambulatory Encounter Wes tha Harvey Masters [facility] UNK - Ambulatory Encounter Wes tha Wes Masters [facility] [facility] UNK - Ambulatory Encounter Wes tha Harvey Masters [employer] [facility] UNK - Ambulatory Encounter Wes Lisa Harvey Masters [facility] UNK - Ambulatory Encounter Wes tha Harvey Masters [employer] [facility] UNK - Ambulatory Encounter Wes Lisa Harvey Masters [facility] UNK - Ambulatory Encounter Wes Lisa Harvey Masters [facility] UNK - Ambulatory Encounter Wes Lisa Harvey Masters [employer] [facility] UNK - Ambulatory Encounter Wes Lisa Harvey Masters [facility] UNK - Ambulatory Encounter Wes Lisa Harvey Masters [employer] [facility] UNK - Ambulatory Encounter Edwina Ingrid Edwina Ingrid [facility] UNK - Ambulatory Encounter Angeles Espitiaoa [facility] Behavioral Health UNK - Ambulatory Encounter Wes Lisa Harvey Masters [facility] Behavioral Health UNK - Ambulatory Encounter Wes Lisa Harvey Masters [employer] Angeles Balboa [facility] Behavioral [facility] UNK - Ambulatory Encounter Edwina Ingrid Edwina Ingrid [facility] UNK - Ambulatory Encounter Edwina Ingrid Edwina Ingrid [facility] UNK - Ambulatory Encounter Bengluiz Juancarlos Ivory [facility] Behavior[facility] UNK - Ambulatory Encounter Edwina Ingrid Edwina Ingrid [facility] UNK - Ambulatory Encounter Thida Gilliland [facility] Behavior[facility] Health UNK - Ambulatory Encounter Thida Gilliland [facility] Behavior[facility] UNK - Ambulatory Encounter Wes Lisa Harvey Masters [facility] UNK - Ambulatory Encounter Wes Lisa Harvey Masters [employer] Thida Gilliland [facility] UNK - Ambulatory Encounter Wes Lisa Harvey Masters [facility] UNK - Ambulatory Encounter Wes Lisa Harvey Masters [employer] [facility] Behavior[facility] UNK - Ambulatory Encounter Edwina Ingridkenny Quintero [facility] UNK - Ambulatory Encounter Wes Lisa Harvey Masters [facility] Behavioral Health UNK - Ambulatory Encounter Wes Lisa Harvey Masters [employer] [facility] Behavior[facility] UNK - Ambulatory Encounter Wes Lisa Castros Alia Loera [facility] Behavior[facility] UNK - Ambulatory Encounter Wes Lisa Harvey Masters [facility] Behavior[facility] UNK - Ambulatory Encounter Wes Lisa Harvey Masters [employer] [facility] Behavior[facility] UNK - Ambulatory Encounter Day Quintero [facility] UNK - Ambulatory Encounter Edwina Ingrid Edwinaangie Quintero [facility] UNK - Ambulatory Encounter Wes Lisa Harvey Masters [facility] Behavior[facility] Health UNK - Ambulatory Encounter Wes Lisa Harvey Masters [facility] Behavior[facility] UNK - Ambulatory Encounter Wes Lisa Castros Angeles Estrada [facility] Behavior[facility] Drug seeking behavior - Ambulatory Encounter Prabha Bravo [facility] UNK - Ambulatory Encounter Edwina Quintero [facility] UNK - Ambulatory Encounter Edwina Quintero [facility] UNK - Ambulatory Encounter Wes s Wes Castros Angeles Estrada [facility] Behavior[facility] Acute Stress Disorder - Ambulatory Encounter Wes Masters Wes Masters Alia Luz Maria [facility] Behavior[facility] Health UNK - Ambulatory Encounter Samanta Dolan [facility] UNK - Ambulatory Encounter Wes Lisa Gilliland Lary German [facility] UNK - Ambulatory Encounter Angeles Estrada [facility] Behavioral Health UNK - Ambulatory Encounter Wes Lisa Harvey Masters [facility] Behavior[facility] Health UNK - Ambulatory Encounter Wes Masters Wes Masters [employer] Angeles Omkaroa [facility] Behavioral Health UNK - Ambulatory Encounter Wes Lisa Harvey Masters [facility] Behavior[facility] UNK - Ambulatory Encounter Wes Lisa Harvey Masters [employer] [facility] Behavior[facility] UNK - Ambulatory Encounter Angeles Estrada [facility] Behavior[facility] UNK - Ambulatory Encounter Wes Lisa Harvey Masters [facility] Behavior[facility] UNK - Ambulatory Encounter Wes Mastertha Harvey Masters [employer] [facility] Behavior[facility] UNK - Ambulatory Encounter Wes Lisa Harvey Masters [employer] [facility] Behavioral Health UNK - Ambulatory Encounter Monico Ayesha [facility] Behavioral Health UNK - Ambulatory Encounter Wes Masters Wes Masters Monico Ayesha [facility] Behavioral [facility] UNK - Ambulatory Encounter Wes Masters Wes Masters Annabelle OrtegaKevin Diana [facility] Contact Center UNK - Ambulatory Encounter Wes Lisa Gonzalez Thida Gilliland [facility] Behavioral Health UNK - Ambulatory Encounter Thida Gilliland [facility] UNK - Ambulatory Encounter Wes Lisa Castros Samanta Porter [facility] UNK - Ambulatory Encounter Wes Lisa Castros Lary Porter [facility] UNK - Ambulatory Encounter Mana Mukherjeellar [facility] Contact Center UNK - Ambulatory Encounter Wes Lisa Harvey Masters [facility] UNK - Ambulatory Encounter Wes Lisa Harvey Masters [facility] UNK - Ambulatory Encounter Wes Lisa Harvey Masters [employer] [facility] UNK - Ambulatory Encounter Wes Lisa Harvey Masters [employer] [facility] Behavior[facility] UNK - Ambulatory Encounter Thida Gilliland [facility] Behavior[facility] UNK - Ambulatory Encounter Wes Lisa Harvey Masters [facility] UNK - Ambulatory Encounter Lio Sandhu [facility] UNK - Ambulatory Encounter Wes Lisa Harvey Masters Lio Sandhu [facility] UNK - Ambulatory Encounter Wes Mastertha Harvey Masters [facility] UNK - Ambulatory Encounter Wes Lisa Harvey Masters [employer] [facility] Behavior[facility] UNK - Ambulatory Encounter Wes Lisa Harvey Masters Monico Ayesha [facility] Behavior[facility] Health UNK - Ambulatory Encounter Ángela Harvey Masters [facility] UNK - Ambulatory Encounter Ángela Larios [facility] Behavioral Health UNK - Ambulatory Encounter Ángela Harvey Masters [facility] Behavioral [facility] UNK - Ambulatory Encounter Wes Lisa Harvey Masters [employer] [facility] Behavior[facility] UNK - Ambulatory Encounter Wes Lisa Harvey Masters Samanta Dolan [facility] Behavioral Health BIPOLAR I DISORDER, CURRENT EPISODE DEPRESSED, IN FULL REMISSION - Ambulatory Encounter Thida Gilliland [facility] Behavioral Health UNK - Ambulatory Encounter Wes Lisa Harvey Masters [facility] Behavioral [facility] UNK - Ambulatory Encounter Wes Lisa Harvey Masters [facility] UNK - Ambulatory Encounter Wes Lisa Harvey Masters [employer] [facility] Behavioral Health UNK - Ambulatory Encounter Wes Lisa Harvey Masters [facility] UNK - Ambulatory Encounter Wes Lisa Harvey Masters [employer] [facility] Behavior[facility] UNK - Ambulatory Encounter Wes Lisa Harvey Masters [employer] [facility] UNK - Ambulatory Encounter Wes Lisa Harvey Masters [facility] UNK - Ambulatory Encounter Wes Lisa Harvey Masters Monico Ayesha [facility] Behavior[facility] Health DEPRESSIVE DISORDER NOSANXIETY STATE NOSBIPOLAR I DISORDER, CURRENT EPISODE DEPRESSED, IN FULL REMISSION - Ambulatory Encounter Wes Lisa Harvey Masters Clarissa Bey Monico Ayesha Laly Servin [facility] UNK - Ambulatory Encounter Wes Lisa Harvey Masters [employer] [facility] UNK - Ambulatory Encounter Wes Lisa Harvey Masters [facility] UNK - Ambulatory Encounter Wes Lisa Harvey Masters [employer] [facility] UNK - Ambulatory Encounter Wes Lisa Harvey Masters [facility] UNK - Ambulatory Encounter Wes Lisa Harvey Masters Lio Sandhu [facility] Behavior[facility] Health UNK - Ambulatory Encounter Samanta Gilliland [facility] Behavior[facility] UNK - Ambulatory Encounter Wes Lisa Harvey Masters [facility] Behavior[facility] UNK - Ambulatory Encounter Laly BarJohn Bowen [facility] UNK - Ambulatory Encounter Wes Lisa Harvey Masters [employer] Laly BaranAkce [facility] Behavior[facility] UNK - Ambulatory Encounter Wes Lisa Harvey Masters [employer] [facility] Behavior[facility] UNK - Ambulatory Encounter Wes Lisa Harvey [facility] Behavior[facility] UNK - Ambulatory Encounter Wes Lisa Harvey Masters [facility] Behavior[facility] UNK - Ambulatory Encounter Wes Lisa Harvey Masters Lio Sandhu [facility] Behavior[facility] Health BIPOLAR I DISORDER, CURRENT EPISODE DEPRESSED, IN FULL REMISSIONANXIETY DISORDER, UNSPECIFIED - Ambulatory Encounter Monicofrancisco javier Hodge [facility] Contact Center UNK - Ambulatory Encounter Wes Lisa Harvey Masters Monico Ayesha Annabelle Mitchell [facility] Contact Center UNK - Ambulatory Encounter Wes Lisa Harvey Masters [facility] Behavior[facility] UNK - Ambulatory Encounter Wes Mastertha [facility] UNK - Ambulatory Encounter Laly Malathi [facility] UNK - Ambulatory Encounter Wes Mastertha Harvey Masters [employer] Laly BarLucilakce [facility] Behavior[facility] UNK - Ambulatory Encounter Wes Lisa Harvey Masters [facility] Behavior[facility] UNK - Ambulatory Encounter Wes Lisa Harvey Masters [employer] [facility] Behavior[facility] UNK - Ambulatory Encounter Thida Gilliland [facility] UNK - Ambulatory Encounter Wes s Wes Masters [facility] UNK - Ambulatory Encounter Wes Masters Wes Masters [employer] [facility] UNK - Ambulatory Encounter Ortega Jerrell [facility] UNK - Ambulatory Encounter Ortega Jerrell [facility] UNK - Ambulatory Encounter Wes Masters Wes Masters [employer] Ortega Jerrell [facility] UNK - Ambulatory Encounter Wes Lisa Harvey Masters [employer] Ortega Jerrell [facility] UNK - Ambulatory Encounter Thida Gilliland [facility] UNK - Ambulatory Encounter Wes Mastertha Harvey Masters Thida Gilliland [facility] UNK - Ambulatory Encounter Wes Masters Wes Masters [facility] UNK - Ambulatory Encounter Wes Mastertha Harvey Masters Thida Gilliland [facility] UNK - Ambulatory Encounter Wes s Wes Masters [facility] UNK - Ambulatory Encounter Wes Lisa Harvey Masters [employer] [facility] UNK - Ambulatory Encounter Chance Ibrahim [facility] Adult Medicine UNK - Ambulatory Encounter Thida Gilliland [facility] UNK - Ambulatory Encounter Wes Lisa Harvey Masters Thida Gilliland [facility] UNK - Ambulatory Encounter Wes Lisa Harvey Masters [facility] UNK - Ambulatory Encounter Wes Lisa Harvey Masters [employer] [facility] UNK - Ambulatory Encounter Chance Ibrahim [facility] Adult Medicine UNK - Ambulatory Encounter Chance Ibrahim [facility] Adult [facility] UNK - Ambulatory Encounter Chance Ibrahim [facility] Adult Medicine UNK - Ambulatory Encounter Chance Morin [facility] Adult Medicine Back pain - Ambulatory Encounter Thida Gilliland [facility] UNK - Ambulatory Encounter Wes Lisa Harvey Masters [facility] UNK - Ambulatory Encounter Wes Lisa Harvey Masters [employer] Thida Gilliland [facility] UNK - Ambulatory Encounter Wes Lisa Harvey Masters [facility] UNK - Ambulatory Encounter Wes Lisa Harvey Masters [employer] [facility] UNK - Ambulatory Encounter Wes Lisa Harvey Masters [facility] UNK - Ambulatory Encounter Wes Lisa Harvey Masters [facility] UNK - Ambulatory Encounter Thida Gilliland [facility] UNK - Ambulatory Encounter Ortega Jerrell [facility] UNK - Ambulatory Encounter Ortega Jerrell [facility] UNK - Ambulatory Encounter Wes Lisa Harvey Masters [employer] Ortega Jerrell [facility] UNK - Ambulatory Encounter Wes Lisa Harvey Masters [employer] Ortega Jrerell Thida Gilliland [facility] UNK - Ambulatory Encounter Wes Lisa Harvey Masters [facility] UNK - Ambulatory Encounter Wes Lisa Harvey Masters [employer] [facility] UNK - Ambulatory Encounter Wes Lisa Harvey Masters [employer] [facility] UNK - Ambulatory Encounter Wes Masters Wes Masters [facility] UNK - Ambulatory Encounter Wes Masters Wes Masters Iraida Mcpherson [facility] Behavior[facility] Health UNK - Ambulatory Encounter Lio Madden [facility] Adult Medicine UNK - Ambulatory Encounter Wes Masters Wes Masters Samanta Leon Lam [facility] Contact Center UNK - Ambulatory Encounter Lauren Liu [facility] [employer] REPAIRER UNK - Ambulatory Encounter Wes Masters Wes Masters [facility] UNK - Ambulatory Encounter Wes Masters Wes Masters Morena Garibay [facility] Behavior[facility] UNK - Ambulatory Encounter Samanta Gilliland [facility] UNK - Ambulatory Encounter Wes Masters Wes Masters Thida Gilliland Lio Sandhu [facility] UNK - Ambulatory Encounter Oumou George [employer] [facility] [facility] UNK - Ambulatory Encounter Wes Masters Wes Masters Thida Gilliland [facility] UNK - Ambulatory Encounter Wes Masters Wes Masters [facility] UNK - Ambulatory Encounter Wes Masters Wes Masters [facility] UNK - Ambulatory Encounter Wes Masters Wes Masters Clarissa Mcpherson [facility] Contact Center UNK - Ambulatory Encounter Clarissa Bey [facility] Contact Center UNK - Ambulatory Encounter Wes Masters Wes Masters Carolyn Lam [facility] Contact Center UNK - Ambulatory Encounter Wes Masters Wes Masters LinkLogic [facility] Adult Medicine UNK - Ambulatory Encounter Wes Masters Wes Masters [facility] UNK - Ambulatory Encounter Wes Masters Wes Masters Thida Gilliland [facility] UNK - Ambulatory Encounter Clarissa Bey [facility] Contact Center UNK - Ambulatory Encounter Venancio Mehta [facility] UNK - Ambulatory Encounter Venancio Mehta [facility] UNK - Ambulatory Encounter Wes Masters Wes Masters Thida Gilliland Mana [facility] Contact Center UNK - Ambulatory Encounter Wes s Wes Masters [facility] UNK - Ambulatory Encounter Wes s Wes Masters [facility] UNK - Ambulatory Encounter Wes s Wes Masters Mayelada Gilliland Mana [facility] Contact Center UNK - Ambulatory Encounter Wes Mastertha Harvey Masters [facility] UNK - Ambulatory Encounter Jordin Watson [facility] UNK - Ambulatory Encounter Wes Lisa Harvey Masters [facility] UNK - Ambulatory Encounter Oumou Ariel [facility] UNK - Ambulatory Encounter Oumou Ariel [facility] UNK - Ambulatory Encounter Oumou Ariel [facility] UNK - Ambulatory Encounter Wes Masters Wes Masters [facility] UNK - Ambulatory Encounter Wes Masters Wes Masters [facility] UNK - Ambulatory Encounter Oumou Ariel [facility]ic [facility] UNK - Ambulatory Encounter Oumou Ariel [facility] UNK - Ambulatory Encounter Wes Masters Wes Masters Noah Somers [facility] Adult Medicine UNK - Ambulatory Encounter Luis Viera [facility] Adult Medicine UNK - Ambulatory Encounter Oumou BradyLogsean [facility] Adult Medicine UNK - Ambulatory Encounter Wes Harvey Masters [facility] Behavioral Health UNK - Ambulatory Encounter Wes Masters Wes Masters Oumou Santosssenia Mcpherson [facility] Behavioral Health UNK - Ambulatory Encounter Oumou Ariel Harvey Masters Wes Masters Amanda English [facility] Adult Medicine UNK - Ambulatory Encounter Oumou Ariel [facility] Adult Medicine UNK - Ambulatory Encounter Oumou Ariel [facility] Adult Medicine UNK - Ambulatory Encounter Wes Mastertha Harvey Masters Nidia Somers [facility] UNK - Ambulatory [facility]counter [facility] Adult Medicine UNK - Ambulatory Encounter [facility] Adult Medicine UNK - Ambulatory Encounter Oumou Ariel Prattnathan [facility] Gurdeep [facility] Adult Medicine Annual examDrug seeking behaviorInfluenza, Vaccination AgainstPreventive health care (Tdap) - Ambulatory Encounter Tomás AnmolKevinHermelindo Logan [facility] Adult Medicine UNK - Ambulatory Encounter Wes Masters Wes Masters [facility] Behavioral Health UNK - Ambulatory Encounter Wes Mastertha Harvey Masters Jose AntonioLogsean [facility] Behavioral Health UNK - Ambulatory Encounter Morena Phoenix [facility] Behavioral Health UNK - Ambulatory Encounter Wes Harvey Masters [facility] Behavioral Health UNK - Ambulatory Encounter Wes Masters Wes Masters [employer]Logic Morena Garibay [facility] Behavioral Health UNK - Ambulatory Encounter Wes Masters Wes Masters Clarissa Bey [facility] Contact Center UNK - Ambulatory Encounter Wes Masters Wes Masters [facility] UNK - Ambulatory Encounter Wes Masters Wes Masters [facility] UNK - Ambulatory Encounter Wes Masters Wes Masters Clarissa Bey [facility] Contact Center UNK - Ambulatory Encounter Wes Lisa Harvey Masters [facility] UNK - Ambulatory Encounter Wes Mastertha Harvey Masters [facility] UNK - Ambulatory Encounter Wes Lisa Harvey Masters [facility] UNK - Ambulatory Encounter Wes Mastertha Harvey Masters [facility] UNK - Ambulatory Encounter Wes Masters Wes Masters [facility] UNK - Ambulatory Encounter Wes Mastertha Harvey Masters [facility] UNK - Ambulatory Encounter Wes Mastertha Harvey Masters [facility] UNK - Ambulatory Encounter Wes Lisa Harvey Masters [facility] UNK - Ambulatory Encounter Wes Masters Wes Masters Clarissa Bey [facility] Contact Center UNK - Ambulatory Encounter Wes Masters Wes Masters Clarissa Bey Mayelada [facility] Contact Center UNK - Ambulatory Encounter Wes Masters Wes Masters [facility] UNK - Ambulatory Encounter Wes Masters Wes Masters [facility] UNK - Ambulatory Encounter Wes Masters Wes Masters Marsha Almonte [facility] Behavioral Health UNK - Ambulatory Encounter Wes Masters Wes Masters [facility] UNK - Ambulatory Encounter Wes Masters Wes Masters [employer] [facility] Behavioral Health UNK - Ambulatory Encounter Ale Genaro [facility] UNK - Ambulatory Encounter Wes s Wes Masters Ale Genaro Mak Mahogany [facility] UNK - Ambulatory Encounter Wes Masters Wes Masters Marsha Almonte [facility] Behavioral Health UNK - Ambulatory Encounter Wes Lisa Harvey Masters [facility] Behavioral Health UNK - Ambulatory Encounter Wes Lisa Castros LinkLogic [facility] Behavioral Health UNK - Ambulatory Encounter Wes Lisa Castros Morenaorion Skinnerjechuy [facility] UNK - Ambulatory Encounter Wes Masters Wes Masters [facility] Behavioral Health UNK - Ambulatory Encounter Wes Mastertha Harvey Masters [employer] [facility] Behavioral Health UNK - Ambulatory Encounter Wes Lisa Harvey Masters [facility] Behavioral Health UNK - Ambulatory Encounter Wes Lisa Harvey Masters [facility] Behavioral Health UNK - Ambulatory Encounter Wes s Wes Castros Lary Subramanian [facility] Behavioral Health UNK - Ambulatory Encounter Lio Madden [facility] Adult Medicine UNK - Ambulatory Encounter Morena Garibay [facility] Behavioral Health UNK - Ambulatory Encounter Wes Lisa Harvey Masters [facility] Behavioral Health UNK - Ambulatory Encounter Wes Masters Wes Masters [employer]Logic Morena Garibay [facility] Behavioral Health UNK - Ambulatory Encounter Wes s Wes Sandhu [facility] UNK - Ambulatory Encounter Wes Masters Wes Masters Marsha Almonte [facility] Behavioral Health UNK - Ambulatory Encounter Wes Masters Wes Masters [facility] Behavioral Health UNK - Ambulatory Encounter Wes Masters Wes Masters [facility] UNK - Ambulatory Encounter Wes Masters Wes Masters LinkLogic [facility] Behavioral Health UNK - Ambulatory Encounter Lary Marilynn [facility] Behavioral Health UNK - Ambulatory Encounter Wes Masters Wes Masters Lary Marilynn [facility] Behavioral Health UNK - Ambulatory Encounter Wes Masters Wes Masters [facility] Behavioral Health UNK - Ambulatory Encounter Wes Masters Wes Masters LinkLog[employer] [facility] Behavioral Health UNK - Ambulatory Encounter Wes Masters Wes Masters [facility] Behavioral Health UNK - Ambulatory Encounter Wes Masters Wes Masters Morena Garibay [facility] Behavioral Health UNK - Ambulatory Encounter Wes Masters Wes Masters [facility] Behavioral Health UNK - Ambulatory Encounter Wes Masters Wes Masters [employer]Log[employer] [facility] Behavioral Health UNK - Ambulatory Encounter Wes Masters Wes Masters Ale Lam [facility] Behavioral Health BIPOLAR DISORDER NOS IN REMISSION - Ambulatory Encounter Morena [facility] UNK - Ambulatory Encounter Wes Masters Wes Masters Clarissa [facility] UNK - Ambulatory Encounter Wes Masters Wes Masters Clarissa [facility] UNK - Ambulatory Encounter [facility] UNK - Ambulatory Encounter Hillary Sanchez Hillary Daniel Bravo [facility] Adult Medicine UNK - Ambulatory Encounter Hillary Daniel Sanchez [facility] Adult [facility] UNK - Ambulatory Encounter Hillary Daniel Sanchez [facility] Adult [facility] UNK - Ambulatory Encounter Wes Masters Wes Masters Thida Gilliland [facility] UNK - Ambulatory Encounter Wes s Wes Masters [facility] UNK - Ambulatory Encounter Hillary Daniel Bravo [facility] Adult Medicine ARTHRALGIAANNUAL EXAM - Ambulatory Encounter Wes Lisa Harvey Masters [facility] UNK - Ambulatory Encounter Wes Lisa Harvey Masters [facility] UNK - Ambulatory Encounter Wes Lisa Harvey Masters [facility] UNK - Ambulatory Encounter Wes Lisa Harvey Masters [facility] UNK - Ambulatory Encounter Morena Garibay [facility] UNK - Ambulatory Encounter Wes Lisa Harvey Masters [facility] UNK - Ambulatory Encounter Wes Lisa Harvey Masters [employer] Morena Garibay [facility] UNK - Ambulatory Encounter Wes s Wes Masters Morena Garibay [facility] UNK - Ambulatory Encounter Thida Gilliland [facility] UNK - Ambulatory Encounter Ews Lisa Harvey Masters [facility] UNK - Ambulatory Encounter Wes Masters Wes Masters [employer]Logic Thida Gilliland [facility] UNK - Ambulatory Encounter Wes Masters Wes Masters Morena Garibay [facility] UNK - Ambulatory Encounter Wes Masters Wes Masters [facility] - [facility]ulatory Encounter Wes Masters Wes Masters Day Doty [facility] Behavioral Health UNK - Ambulatory Encounter Shonda Newell [facility] Behavioral Health UNK - Ambulatory Encounter Wes Masters Wes Masters Thida Gilliland Carolyn Lam [facility] UNK - Ambulatory Encounter Wes Masters Wes Masters Clarissadee Velezgado [facility] UNK - Ambulatory Encounter Wes Masters Wes Masters Mak Vides [facility] UNK - Ambulatory Encounter Wes Masters Wes Masters [facility] Behavioral Health UNK - Ambulatory Encounter Wes Masters Wes Masters [employer]Log[employer] [facility] Behavioral Health UNK - Ambulatory Encounter Wes Masters Wes Masters Mayelada Gilliland [facility] Behavioral Health UNK - Ambulatory Encounter Shonda Newell Lio [facility] UNK - Ambulatory Encounter Marina Rebolledo [facility] Behavioral Health UNK - Ambulatory Encounter Wes Masters Wes Masters Lio Sandhu [facility] UNK - Ambulatory Encounter Wes Masters Wes Masters LinkLogsean [facility] Behavioral Health UNK - Ambulatory Encounter Wes Masters Wes Masters Carolyn Lam [facility] UNK - Ambulatory Encounter Wes Masters Wes Masters [facility] Behavioral Health UNK - Ambulatory Encounter Wes Masters Wes Masters Pj Jacobsen [facility] Behavioral Health UNK - Ambulatory Encounter Marina Rebolledo [facility] Behavioral Health UNK - Ambulatory Encounter Wes Masters Ews Masters Pj Jacobsen [facility] Behavioral Health UNK - Ambulatory Encounter Wes Masters Wes Masters Pj Jacobsen [facility] Behavioral Health UNK - Ambulatory Encounter Wes Masters Wes s Lio Sandhu [facility] UNK - Ambulatory Encounter Wes Masters Wes Masters Thida Gilliland [facility] Behavioral Health UNK - Ambulatory Encounter Wes Masters Wes Masters Andry Sanchez [facility] UNK - Ambulatory Encounter Wes Masters Wes Masters Pj Jolleyquez [facility] Behavioral Health UNK - Ambulatory Encounter Mehrdadcharbel Leal [employer] [facility] Nutrition UNK - Ambulatory Encounter Wes Lisa Harvey Masters [facility] Behavioral Health UNK - Ambulatory Encounter Wes Lisa Harvey Masters [employer]Log[employer] [facility] Behavioral Health UNK - Ambulatory Encounter Marina Rebolledo [facility] Behavioral Health UNK - Ambulatory Encounter Pete S Madderra [facility] UNK - Ambulatory Encounter Pete S Madderra [facility] UNK - Ambulatory Encounter Wes Lisa Harvey [facility] UNK - Ambulatory Encounter Wes Lisa Harvey Masters Thida Gilliland [facility] Behavioral Health UNK - Ambulatory Encounter Susanna Ramírez [facility] Adult Medicine UNK - Ambulatory Encounter Pete S Madderra Wes Masters Wes Masters Thida Gilliland January Laird [facility] Dental UNK - Ambulatory Encounter Wes Masters Wse Masters [employer] [facility] Behavioral Health UNK - Ambulatory Encounter Wes s Wes Masters [facility] UNK - Ambulatory Encounter Wes s Wes Masters Thida Gilliland [facility] Behavioral Health BIPOLAR DISORDER NOS IN REMISSIONDEPRESSIVE DISORDER NOSANXIETY STATE NOS VITAL SIGNS No Information Available Allergies No Known Allergy Information REASON FOR REFERRAL No Information Available RESULTS Date Observation Value Provider Reference Range Interpretation Location propoxyphene screen, urine NEGATIVE [facility] Normal IG [facility] [address] [place] [phone] Dr[address] Dixon Gao " phencyclidine screen, urine NEGATIVE [facility] Normal IG [facility] [address] [phone] Dr[address] Dixon Gao " opiates, urine, semiquantitative NEGATIVE [employer] Normal IG [facility] [address] [place] [phone] Dr[address] Dixon Gao " methaqualone screen, urine NEGATIVE [employer] Normal IG [facility] [address] [place] [phone] Dr[address] Dixon Gao " Methadone screen, urine NEGATIVE [employer] Normal IG [facility] [address] [phone] Dr[address] Dixon Gao " cannabinoid screen, urine NEGATIVE [employer] Normal IG [facility] [address] [place] [phone] Dr[address] Dixon Gao " benzoylecgonine screen, urine NEGATIVE [employer] Normal IG [facility] [address] [place] [phone] Dr[address] Dixon Gao " benzodiazepine screen, urine POSITIVE [employer] Abnormal IG [facility] [address] [phone] Dr[address] Dixon Gao " barbiturates screen, urine NEGATIVE [employer] Normal IG [facility] [address] [place] [phone] Dr[address] Dixon Gao " amphetamine screen, urine NEGATIVE [employer] Normal IG [facility] [address] [place] [phone] Dr[address] Dixon Gao " Drug Screen Results, Urine * These results are for medical treatment only.... LinkLogic IG [facility] [address] [place] [phone] Dr. Dixon Gao alcohol, urine NEGATIVE [employer] Normal IG [facility] [address] [place] [phone] Dr[address] Dixon Gao " propoxyphene screen, urine NEGATIVE [employer] Normal IG [facility] [address] [place] [phone] Dr[address] Dixon Gao " phencyclidine screen, urine NEGATIVE [employer] Normal IG [facility] [address] [phone] Dr[address] Dixon Gao " opiates, urine, semiquantitative NEGATIVE [employer] Normal IG [facility] [address] [place] [phone] Dr[address] Dixon Gao " methaqualone screen, urine NEGATIVE [employer] Normal IG [facility] [address] [place] [phone] Dr[address] Dixon Gao " Methadone screen, urine NEGATIVE [employer] Normal IG [facility] [address] [phone] Dr[address] Dixon Gao " cannabinoid screen, urine NEGATIVE [employer] Normal IG [facility] [address] [place] [phone] Dr[address] Dixon Gao " benzoylecgonine screen, urine NEGATIVE [employer] Normal IG [facility] [address] [place] [phone] Dr[address] Dixon Gao " benzodiazepine screen, urine POSITIVE [employer] Abnormal IG [facility] [address] [phone] Dr[address] Dixon Gao " barbiturates screen, urine NEGATIVE [employer] Normal IG [facility] [address] [place] [phone] Dr[address] Dixon Gao " amphetamine screen, urine NEGATIVE [employer] Normal IG [facility] [address] [place] [phone] Dr[address] Dixon Gao " Drug Screen Results, Urine * These results are for medical treatment only.... LinkLogic IG [facility] [address] [place] [phone] Dr. Dixon Gao erythrocyte sedimentation rate 12 mm/h [employer] 0-15 " thyroid stimulating hormone, serum 1.050 u[iU]/mL [employer] 0.450-4.500 " Quantiferon Gold TB blood test for tuberculosis screening Negative [employer] Negative " hepatitis C antibody, serum <0.1 [employer] 0.0-0.9 " HIV-CMIA (Chemiluminescent Microparticle Immuno Assay) Non Reactive [employer] Non Reactive " rapid plasma reagin antibody, serum Non Reactive [employer] Non Reactive " rheumatoid factor 6.6 [iU]/mL [employer] 0.0-13.9 " hemoglobin A1C, blood, as % of total hemoglobin 5.3 % [employer] 4.8-5.6 " LDL cholesterol, serum 78 mg/dL [employer] 0-99 " very low density lipoproteins 27 mg/dL [employer] 5-40 " HDL cholesterol, serum 35 mg/dL [employer] >39 Low " triglyceride, serum, fasting 134 mg/dL [employer] 0-149 " cholesterol, serum 140 mg/dL [employer] 100-199 " alanine aminotransferase (SGPT), serum 25 1/L [employer] 0-44 " aspartate aminotransferase (SGOT), serum 23 1/L [employer] 0-40 " alkaline phosphatase, serum 68 1/L [employer] 39-117 " bilirubin, serum, total 0.4 mg/dL [employer] 0.0-1.2 " albumin/globulin ratio, serum 1.8 [employer] 1.1-2.5 " globulin, serum 2.7 [employer] 1.5-4.5 " albumin, serum 4.8 g/dL [employer] 3.5-5.5 " protein, total, serum 7.5 g/dL [employer] 6.0-8.5 " calcium, serum 9.3 mg/dL [employer] 8.7-10.2 " carbon dioxide, venous blood 21 mmol/L [employer] 18-29 " chloride, serum 98 mmol/L [employer] 97-108 " potassium, serum 3.9 mmol/L [employer] 3.5-5.2 " sodium, serum 139 mmol/L [employer] 134-144 " urea nitrogen/creatinine ratio, serum 7 [employer] 8-19 Low " eGFR if 96 mL/min/((173/100).m2) [employer]ic >59 " Estimated Glomerular Filtration Rate (calc) 83 mL/min/((173/100).m2) [employer]ic >59 " creatinine, serum 1.21 mg/dL [employer] 0.76-1.27 " urea nitrogen, blood 8 mg/dL [employer] 6-20 " blood glucose, random 85 mg/dL [employer] 65-99 " immature granulocytes, percentage of total cells, blood 0 % [employer] " basophil count, absolute 0.0 x10E3/uL [employer] 0.0-0.2 " Eosinophil Absolute Count 0.2 X10E3/UL [employer] 0.0-0.4 " monocyte count, blood, automated 0.4 X10E3/UL [employer] 0.1-0.9 " lymphocyte count, blood, automated 2.2 X10E3/UL [employer] 0.7-3.1 " Absolute Neutrophils 5.3 X10E3/UL [employer] 1.4-7.0 " basophils as percent of blood leukocytes 0 % [employer] " eosinophils as percent of blood leukocytes 2 % [employer] " monocytes as percent of blood leukocytes 5 % [employer] " lymphocytes as percent of blood leukocytes 27 % [employer] " neutrophils as percent of blood leukocytes 66 % [employer] " platelet count 210 X10E3/UL [employer] 150-379 " red blood cell distribution width 13.7 % [employer] 12.3-15.4 " mean corpuscular hemoglobin concentration, RBC 34.0 G/DL [employer] 31.5-35.7 " mean corpuscular hemoglobin, RBC 30.4 pg [employer] 26.6-33.0 " mean corpuscular volume, RBC 89 fL [employer] 79-97 " hematocrit, blood 42.6 % [employer] 37.5-51.0 " hemoglobin, blood 14.5 g/dL [employer] 12.6-17.7 " erythrocyte (RBC) count 4.77 X10E6/UL [employer] 4.14-5.80 " leukocyte count, blood 8.1 X10E3/UL [employer] 3.4-10.8 Oxycodone urine screening Negative Noah [place] " Ecstasy (MDMA) Screen, urine Negative [place] " Methadone screen, urine Negative [place] " barbiturates screen, urine Negative [place] " benzodiazepine screen, urine Positive Noah Yonis " opiates, urine, semiquantitative Negative Noah Yonis " cannabinoid screen, urine Negative Noah Yonis Neisseria gonorrhoeae DNA probe Negative [employer]Logic Negative " chlamydia DNA probe Negative [employer]ic Negative Neisseria gonorrhoeae DNA probe Negative [employer] Negative " chlamydia DNA probe Negative [employer] Negative " hepatitis B surface antigen Negative [employer] Negative " antinuclear antibody Negative [employer] Negative " hepatitis C antibody, serum <0.1 [employer] 0.0-0.9 " vitamin D 25-hydroxy, serum 28.8 ng/mL [employer] 30.0-100.0 Low " rapid plasma reagin antibody, serum Non Reactive [employer]ic Non Reactive " rheumatoid factor 6.4 [iU]/mL [employer] 0.0-13.9 " hemoglobin A1C, blood, as % of total hemoglobin 5.1 % [employer] 4.8-5.6 " HIV-1/HIV-2 Ab, serum Non Reactive [employer]ic Non Reactive " LDL cholesterol, serum 79 mg/dL [employer] 0-119 " very low density lipoproteins 23 mg/dL [employer] 5-40 " HDL cholesterol, serum 50 mg/dL [employer] >39 " triglyceride, serum, fasting 114 mg/dL [employer] 0-114 " cholesterol, serum 152 mg/dL [employer] 100-189 " alanine aminotransferase (SGPT), serum 33 1/L [employer] 0-44 " aspartate aminotransferase (SGOT), serum 30 1/L [employer] 0-40 " alkaline phosphatase, serum 65 1/L [employer] 39-117 " bilirubin, serum, total 0.4 mg/dL [employer] 0.0-1.2 " albumin/globulin ratio, serum 1.9 [employer] 1.1-2.5 " globulin, serum 2.6 [employer] 1.5-4.5 " albumin, serum 5.0 g/dL [employer] 3.5-5.5 " protein, total, serum 7.6 g/dL [employer] 6.0-8.5 " calcium, serum 9.9 mg/dL [employer] 8.7-10.2 " carbon dioxide, venous blood 26 mmol/L [employer] 18-29 " chloride, serum 101 mmol/L [employer] 97-108 " potassium, serum 4.6 mmol/L [employer] 3.5-5.2 " sodium, serum 142 mmol/L [employer] 134-144 " urea nitrogen/creatinine ratio, serum 9 [employer] 8-19 " eGFR if 98 mL/min/((173/100).m2) [employer] >59 " Estimated Glomerular Filtration Rate (calc) 85 mL/min/((173/100).m2) [employer]ic >59 " creatinine, serum 1.19 mg/dL [employer] 0.76-1.27 " urea nitrogen, blood 11 mg/dL [employer] 6-20 " blood glucose, random 98 mg/dL [employer] 65-99 " immature granulocytes, percentage of total cells, blood 0 % [employer]Log[employer] " basophil count, absolute 0.0 x10E3/uL [employer] 0.0-0.2 " Eosinophil Absolute Count 0.1 X10E3/UL [employer] 0.0-0.4 " monocyte count, blood, automated 0.4 X10E3/UL [facility] 0.1-0.9 " lymphocyte count, blood, automated 1.9 X10E3/UL [facility] 0.7-3.1 " Absolute Neutrophils 2.8 X10E3/UL [facility] 1.4-7.0 " basophils as percent of blood leukocytes 0 % [facility] " eosinophils as percent of blood leukocytes 2 % [facility] " monocytes as percent of blood leukocytes 7 % [facility] " lymphocytes as percent of blood leukocytes 37 % [facility] " neutrophils as percent of blood leukocytes 54 % [facility] " platelet count 190 X10E3/UL [facility] 150-379 " red blood cell distribution width 13.6 % [facility] 12.3-15.4 " mean corpuscular hemoglobin concentration, RBC 33.5 G/DL [facility] 31.5-35.7 " mean corpuscular hemoglobin, RBC 29.8 pg [facility] 26.6-33.0 " mean corpuscular volume, RBC 89 fL [facility] 79-97 " hematocrit, blood 46.0 % [facility] 37.5-51.0 " hemoglobin, blood 15.4 g/dL [facility] 12.6-17.7 " erythrocyte (RBC) count 5.17 X10E6/UL [facility] 4.14-5.80 " leukocyte count, blood 5.2 X10E3/UL [facility] 3.4-10.8 " thyroxine, serum, free 1.17 ng/dL [facility] 0.82-1.77 " thyroid stimulating hormone, serum 1.650 u[iU]/mL [facility] 0.450-4.500 HISTORY OF IMMUNIZATIONS No Information Available HISTORY OF MEDICATION USE Medication Instructions Dates Provider Comments DIAZEPAM 5 MG TABS TAKE 1 TABLET BY MOUTH THREE TIMES DAILY NEEDED FOR ANXIETY Wes Masters VALIUM 10 MG ORAL TABLET Take 1/2 tablet Three Times a Day. - Wes Masters BUPROPION XL 150MG TABLETS (24 H) TAKE 1 TABLET BY MOUTH DAILY Wes Masters CARBAMAZEPINE ER 100 MG ORAL CAPSULE EXTENDED RELEASE 12 HOUR Take one capsule at bedtime. - Wes Masters PRAZOSIN 2MG CAPSULES TAKE 1 CAPSULE BY MOUTH AT BEDTIME Wes Masters ESCITALOPRAM OXALATE 10 MG ORAL TABLET Take 1/2 tablet daily for seven days then take 1 tablet daily thereafter. - Wes Masters PRAZOSIN HCL 1 MG ORAL CAPSULE Take one at bedtime. - Wes Masters SERTRALINE HCL 50 MG ORAL TABLET Take one-half tablet at bedtime for seven days then take one tablet at bedtime thereafter. - Wes Masters BENZTROPINE MESYLATE 0.5 MG ORAL TABLET Take one tablet at bedtime. - Wes Masters GEODON 20 MG ORAL CAPSULE Take one capsule daily. - Wes Masters VALIUM 5 MG ORAL TABLET take 1 tablet tid as needed for anxiety - Wes Masters TRAZODONE 100MG TABLETS TAKE 2 TABLETS BY MOUTH AT BEDTIME Wes Masters ALPRAZOLAM 0.5 MG ORAL TABLET Take one or two tablets daily as needed for severe anxiety. - Laly Servin EFD 12/09/2015 GEODON 20 MG ORAL CAPSULE Take one at bedtime in addition to geodon 40 mg at bedtime. - Wes Masters GEODON 40 MG ORAL CAPSULE Take one capsules at bedtime. - Wes Masters DIAZEPAM 5 MG ORAL TABLET Take one tablet Three Times a Day by mouth as Needed for anxiety. - Wes Masters VALIUM 5 MG ORAL TABLET Take one tablet three times a day as needed for anxiety. - Wes Masters ATIVAN 1 MG ORAL TABLET Take one tablet twice daily. - Wes Masters TRAZODONE HCL 50 MG ORAL TABLET Take one half to one tablet at bedtime for sleep. - Wes Masters VALIUM 5 MG ORAL TABLET Take 1 tablet three times daily as needed for anxiety. - Wes Masters KLONOPIN 0.5 MG ORAL TABLET Take one tablet twice a day as needed for anxiety. - Wes Masters WELLBUTRIN XL 150 MG ORAL TABLET EXTENDED RELEASE 24 HOUR Take one tablet daily - Wes Masters VALIUM 5 MG ORAL TABLET Take one tablet twice a day as needed for anxiety. - Wes Masters WELLBUTRIN SR 200 MG ORAL TABLET EXTENDED RELEASE 12 HOUR Take one tablet daily. - Wes Masters ACETAMINOPHEN-CODEINE #3 300-30 MG ORAL TABLET 1-2 tablets by mouth every 4 hours as needed for pain - Louise Laird AMOXICILLIN 500 MG ORAL CAPSULE - Gurdeep Meza BUSPIRONE HCL 15 MG ORAL TABLET Take one tablet at bedtime. May take an additional tablet during the day as needed for anxiety. - Wes Masters WELLBUTRIN SR 100 MG ORAL TABLET EXTENDED RELEASE 12 HOUR Take two tablets daily. - Wes Masters GEODON 60 MG ORAL CAPSULE Take one tab at bedtime in addition to geodon 40 mg capsule every morning. - Wes Masters SOCIAL HISTORY Date Observation Value Provider smoking, advice to quit Yes Wes Gonzalez " smoking status former smoker Wes Castros " social history reviewed E&M reviewed today Wes Masters time of call 08/11/2019 2:22 PM Mallory Weems time of call 07/14/2019 1:38 PM Mallory Weems smoking status former smoker Wes Castros " social history reviewed E&M reviewed today Wes Masters smoking status former smoker Wes s " social history reviewed E&M reviewed today Wes Masters smoking status former smoker Wes Castros " social history reviewed E&M reviewed today Wes Masters smoking status former smoker Wes Castros " social history reviewed E&M reviewed today Wes Masters smoking status former smoker Wes Castros " social history reviewed E&M reviewed today Wes Masters smoking status former smoker Wes s " social history reviewed E&M reviewed today Wes Masters smoking status former smoker Wes Masters " social history reviewed E&M reviewed today Wes Masters smoking status former smoker Wes s " social history reviewed E&M reviewed today Wes Masters smoking status former smoker Wes s " social history reviewed E&M reviewed today Wes Masters smoking status former smoker Wes Castros " social history reviewed E&M reviewed today Wes Masters smoking status former smoker Wes s " social history reviewed E&M reviewed today Wes Masters home/family situation, assessment Residing at [facility]. Edwina Quintero " social history reviewed E&M reviewed today Edwina Quintero smoking status former smoker Wes Castros " social history reviewed E&M reviewed today Wes Masters smoking status former smoker Wes Castros " social history reviewed E&M reviewed today Wes Masters smoking status former smoker Wes Castros " social history reviewed E&M reviewed today Wes Masters smoking status former smoker Wes Masters smoking status former smoker Wes Castros " social history reviewed E&M reviewed today Wes Masters smoking status former smoker Wes Masters " social history reviewed E&M reviewed today Wes Masters smoking status former smoker Wes Masters " social history reviewed E&M reviewed today Wes Masters smoking status current every day smoker Wes s " social history reviewed E&M reviewed today Wes Masters drug use, illicit Currently Nasra Mehta " alcohol use Currently Nasra Mehta " is there any chance that you could be ? No Nasra Mehta " passive cigarette smoke exposure No Nasra Mehta " cigarettes, number smoked per day 2 cig a day Nasra Mehta " smoking status current every day smoker Nasra Mehta smoking status former smoker Wes Masters " social history reviewed E&M reviewed today Wes Masters smoking status former smoker Wes Castros " social history reviewed E&M reviewed today Wes Masters smoking status former smoker Wes Castros " social history reviewed E&M reviewed today Wes Masters smoking status former smoker Wes Castros " social history reviewed E&M reviewed today Wes Masters time of call 09/26/2015 3:48pm Luis Viera smoking status former smoker Wes Castros " social history reviewed E&M reviewed today Wes Masters smoking, advice to quit Yes Gurdeep Meza " Exercise Program Referral Nafisa Mzea " Weight Management Counseling Provided Nafisa Meza " Nutrition intervention Nafisa Meza " drug use, illicit Currently Florence Wilkerson " alcohol use Currently Florence Wilkerson " social history reviewed E&M reviewed today Florence Wilkerson " passive cigarette smoke exposure No Florencemichelle Wilkerson " smoking status former smoker Florence Wilkerson smoking status former smoker Wes Castros " social history reviewed E&M reviewed today Wes Masters smoking status former smoker Wes Castros " social history reviewed E&M reviewed today Wes Masters smoking status former smoker Wes Castros " social history reviewed E&M reviewed today Wes Masters smoking status former smoker Wes Masters " social history reviewed E&M reviewed today Wes Masters smoking status former smoker Wes Castros " social history reviewed E&M reviewed today Wes Masters smoking status former smoker Wes Castros " social history reviewed E&M reviewed today Wes Masters drug use, illicit Previously Alice Bravo " alcohol use Currently Alice Bravo " smoking status former smoker Alice Bravo smoking status current every day smoker Wes s " social history reviewed E&M reviewed today Wes Masters smoking status current every day smoker Wes Castros " social history reviewed E&M reviewed today Wes Masters smoking status current every day smoker Wes Castros " social history reviewed E&M reviewed today Wes Masters smoking status current every day smoker Wes Castros " social history reviewed E&M reviewed today Wes Castros smoking status current every day smoker Wes Castros " social history reviewed E&M reviewed today Wes Castros smoking status current every day smoker Wes Castros " social history reviewed E&M reviewed today Wes Masters smoking status current every day smoker Wes Castros " social history reviewed E&M reviewed today Wes Masters smoking status current every day smoker Wes Masters " social history reviewed E&M reviewed today Wes Masters smoking status current every day smoker Wes Castros " social history reviewed E&M reviewed today Wes Masters social history reviewed E&M reviewed today Marina Rebolledo " family support On and off girlfriend since December. Marina Rebolledo " home/family situation, assessment Residing at [facility]. 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 Wes Gonzalez " patient considered to be homeless No Wes Masters FUNCTIONAL STATUS No Information Available MENTAL STATUS Date Observation Value Provider mental status assessment, judgment good Edwina Quintero " insight (mental status exam) good Edwina Ingrid " Mental Status Exam: intelligence adequate fund of information, intact memory processes, oriented to person, oriented to place, oriented to time, oriented to situation, oriented to reality Edwinaangie Quintero " hallucinations none Edwina Ingrid " thought content (mental status exam) (E&M) lucid Edwina Ingrid " mental status assessment, process able to abstract, goal-directed, logical Edwinaangie Parsonen " mental status assessment, sensorium lethargic, - Edwina Ingrid " affect (mental status exam) congruent, normal intensity, normal range Edwinatitus Quintero " mood (mental status exam) pleasant, - Edwina Ingrid " mental status assessment, speech activity normal flow, normal pace, normal pressure, normal rate, normal tone, normal volume, spontaneous, profane Edwina Ingrid " mental status assessment, motor activity normal gait, normal posture Edwinaangie Parsonen " behavior (mental status exam) appropriate, candid, cooperative, good eye contact, polite, responsive, - Edwina Ingrid " mental appearance (mental status exam) adequate hygiene, appropriate dress, looks like stated age, neat Edwina Quintero mental status assessment, judgment good Wes Masters " insight (mental status exam) good Wes Masters " Mental Status Exam: intelligence adequate fund of information, intact memory processes, oriented to person, oriented to place, oriented to time, oriented to situation, oriented to reality Wes Masters " hallucinations none Wes Masters " thought content (mental status exam) (E&M) lucid Wes Masters " mental status assessment, process able to abstract, goal-directed, logical Wes Masters " mental status assessment, sensorium lethargic Wes Masters " affect (mental status exam) congruent, normal intensity, normal range Wes Masters " mood (mental status exam) pleasant Wes Masters " mental status assessment, speech activity normal flow, normal pace, normal pressure, normal rate, normal tone, normal volume, spontaneous, profane Wes Masters " mental status assessment, motor activity normal gait, normal posture Wes Masters " behavior (mental status exam) appropriate, candid, cooperative, good eye contact, polite, responsive Wes Masters " mental appearance (mental status exam) adequate hygiene, appropriate dress, looks like stated age, danial Harvey Masters mental status assessment, judgment good Wes Masters " insight (mental status exam) good Wes Masters " Mental Status Exam: intelligence adequate fund of information, intact memory processes, oriented to person, oriented to place, oriented to time, oriented to situation, oriented to reality Wes Masters " hallucinations none Wes Masters " thought content (mental status exam) (E&M) lucid Wes Masters " mental status assessment, process able to abstract, goal-directed, logical Wes Masters " mental status assessment, sensorium lethargic Wes Masters " affect (mental status exam) congruent, normal intensity, normal range Wes Masters " mood (mental status exam) pleasant Wes Masters " mental status assessment, speech activity normal flow, normal pace, normal pressure, normal rate, normal tone, normal volume, spontaneous, profane Wes Masters " mental status assessment, motor activity normal gait, normal posture Wes Masters " behavior (mental status exam) appropriate, candid, cooperative, good eye contact, polite, responsive Wes Masters " mental appearance (mental status exam) adequate hygiene, appropriate dress, looks like stated age, danial Harvey Masters mental status assessment, judgment good Wes Masters " insight (mental status exam) good Wes Masters " Mental Status Exam: intelligence adequate fund of information, intact memory processes, oriented to person, oriented to place, oriented to time, oriented to situation, oriented to reality Wes Masters " hallucinations none Wes Masters " thought content (mental status exam) (E&M) lucid Wes Masters " mental status assessment, process able to abstract, goal-directed, logical Wes Masters " mental status assessment, sensorium lethargic Wes Masters " affect (mental status exam) congruent, normal intensity, normal range Wes Masters " mood (mental status exam) pleasant Wes Masters " mental status assessment, speech activity normal flow, normal pace, normal pressure, normal rate, normal tone, normal volume, spontaneous, profane Wes Masters " mental status assessment, motor activity normal gait, normal posture Wes Masters " behavior (mental status exam) appropriate, candid, cooperative, good eye contact, polite, responsive Wes Masters " mental appearance (mental status exam) adequate hygiene, appropriate dress, looks like stated efra, danial Harvey Masters mental status assessment, judgment good Wes Masters " insight (mental status exam) good Wes Masters " Mental Status Exam: intelligence adequate fund of information, intact memory processes, oriented to person, oriented to place, oriented to time, oriented to situation, oriented to reality Wes Masters " hallucinations none Wes Masters " thought content (mental status exam) (E&M) lucid Wes Masters " mental status assessment, process able to abstract, goal-directed, logical Wes Masters " mental status assessment, sensorium lethargic Wes Masters " affect (mental status exam) congruent, normal intensity, normal range Wes Masters " mood (mental status exam) pleasant Wes Masters " mental status assessment, speech activity normal flow, normal pace, normal pressure, normal rate, normal tone, normal volume, spontaneous, profane Wes Masters " mental status assessment, motor activity normal gait, normal posture Wes Masters " behavior (mental status exam) appropriate, candid, cooperative, good eye contact, polite, responsive Wes Masters " mental appearance (mental status exam) adequate hygiene, appropriate dress, looks like stated age, danial Wes Masters mental status assessment, judgment good Wes Masters " insight (mental status exam) good Wes Masters " Mental Status Exam: intelligence adequate fund of information, intact memory processes, oriented to person, oriented to place, oriented to time, oriented to situation, oriented to reality Wes Masters " hallucinations none Wes Masters " thought content (mental status exam) (E&M) lucid Wes Masters " mental status assessment, process able to abstract, goal-directed, logical Wes Masters " mental status assessment, sensorium lethargic Wes Masters " affect (mental status exam) congruent, normal intensity, normal range Wes Masters " mood (mental status exam) pleasant Wes Masters " mental status assessment, speech activity normal flow, normal pace, normal pressure, normal rate, normal tone, normal volume, spontaneous, profane Wes Masters " mental status assessment, motor activity normal gait, normal posture Wes Masters " behavior (mental status exam) appropriate, candid, cooperative, good eye contact, polite, responsive Wes Masters " mental appearance (mental status exam) adequate hygiene, appropriate dress, looks like stated age, neat Wes Masters mood (mental status exam) pleasant Wes Masters " mental status assessment, judgment good Wes Masters " insight (mental status exam) good Wes Masters " Mental Status Exam: intelligence adequate fund of information, intact memory processes, oriented to person, oriented to place, oriented to time, oriented to situation, oriented to reality Wes Masters " hallucinations none Wes Masters " thought content (mental status exam) (E&M) lucid Wes Masters " mental status assessment, process able to abstract, goal-directed, logical Wes Masters " mental status assessment, sensorium lethargic Wes Masters " affect (mental status exam) congruent, normal intensity, normal range Wes Masters " mental status assessment, speech activity normal flow, normal pace, normal pressure, normal rate, normal tone, normal volume, spontaneous, profane Wes Masters " mental status assessment, motor activity normal gait, normal posture Wes Masters " behavior (mental status exam) appropriate, candid, cooperative, good eye contact, polite, responsive Wes Masters " mental appearance (mental status exam) adequate hygiene, appropriate dress, looks like stated age, neat Wes Masters mental status assessment, judgment good Edwina Ingrid " insight (mental status exam) good Edwina Ingrid " Mental Status Exam: intelligence adequate fund of information, intact memory processes, oriented to person, oriented to place, oriented to time, oriented to situation, oriented to reality Edwina Ingrid " hallucinations none Edwina Ingrid " thought content (mental status exam) (E&M) lucid Edwina Ingrid " mental status assessment, process able to abstract, goal-directed, logical Edwina Ingrid " mental status assessment, sensorium lethargic Edwina Ingrid " affect (mental status exam) congruent, normal intensity, normal range Edwina Ingrid " mood (mental status exam) depressed Edwina Ingrid " mental status assessment, speech activity normal flow, normal pace, normal pressure, normal rate, normal tone, normal volume, spontaneous, profane Edwina Ingrid " mental status assessment, motor activity normal gait, normal posture Edwina Ingrid " behavior (mental status exam) appropriate, candid, cooperative, good eye contact, polite, responsive Edwina Ingrid " mental appearance (mental status exam) adequate hygiene, appropriate dress, looks like stated age, neat Edwina Ingrid mental status assessment, judgment good Wes Masters " insight (mental status exam) good Wes Masters " Mental Status Exam: intelligence adequate fund of information, intact memory processes, oriented to person, oriented to place, oriented to time, oriented to situation, oriented to reality Wes Masters " hallucinations none Wes Masters " thought content (mental status exam) (E&M) lucid Wes Masters " mental status assessment, process able to abstract, goal-directed, logical Wes Masters " mental status assessment, sensorium alert, attentive, clear Wes Masters " affect (mental status exam) congruent, normal intensity, normal range Wes Masters " mood (mental status exam) depressed, frustrated Wes Masters " mental status assessment, speech activity normal flow, normal pace, normal pressure, normal rate, normal tone, normal volume, spontaneous, profane Wes Masters " mental status assessment, motor activity normal gait, normal posture Wes Masters " behavior (mental status exam) appropriate, candid, cooperative, good eye contact, polite, responsive Wes Masters " mental appearance (mental status exam) adequate hygiene, appropriate dress, looks like stated age, neat Wes Masters mood (mental status exam) depressed, frustrated Edwina Ingrid " mental status assessment, judgment good Edwina Ingrid " insight (mental status exam) good Edwina Ingrid " Mental Status Exam: intelligence adequate fund of information, intact memory processes, oriented to person, oriented to place, oriented to time, oriented to situation, oriented to reality Edwina Ingrid " hallucinations none Edwina Ingrid " thought content (mental status exam) (E&M) lucid Edwina Ingrid " mental status assessment, process able to abstract, goal-directed, logical Edwina Ingrid " mental status assessment, sensorium alert, attentive, clear Edwina Ingrid " affect (mental status exam) congruent, normal intensity, normal range Edwina Ingrid " mental status assessment, speech activity normal flow, normal pace, normal pressure, normal rate, normal tone, normal volume, spontaneous, profane Edwina Ingrid " mental status assessment, motor activity normal gait, normal posture Edwina Ingrid " behavior (mental status exam) appropriate, candid, cooperative, good eye contact, polite, responsive Edwina Ingrid " mental appearance (mental status exam) adequate hygiene, appropriate dress, looks like stated age, neat Edwina Ingrid mood (mental status exam) pleasant Wes Masters " mental status assessment, judgment good Wes Masters " insight (mental status exam) good Wes Masters " Mental Status Exam: intelligence adequate fund of information, intact memory processes, oriented to person, oriented to place, oriented to time, oriented to situation, oriented to reality Wes Masters " hallucinations none Wes Masters " thought content (mental status exam) (E&M) lucid Wes Masters " mental status assessment, process able to abstract, goal-directed, logical Wes Masters " mental status assessment, sensorium alert, attentive, clear Wes Masters " affect (mental status exam) congruent, euthymic, normal intensity, normal range Wes Masters " mental status assessment, speech activity normal flow, normal pace, normal pressure, normal rate, normal tone, normal volume, spontaneous Wes Masters " mental status assessment, motor activity normal gait, normal posture Wes Masters " behavior (mental status exam) appropriate, candid, cooperative, good eye contact, polite, responsive Wes Masters " mental appearance (mental status exam) adequate hygiene, appropriate dress, looks like stated age, danial Harvey Masters mental status assessment, judgment good Wes Masters " insight (mental status exam) good Wes Masters " Mental Status Exam: intelligence adequate fund of information, intact memory processes, oriented to person, oriented to place, oriented to time, oriented to situation, oriented to reality Wes Masters " hallucinations none Wes Masters " thought content (mental status exam) (E&M) lucid Wes Masters " mental status assessment, process able to abstract, goal-directed, logical Wes Masters " mental status assessment, sensorium alert, attentive, clear Wes Masters " affect (mental status exam) congruent, euthymic, normal intensity, normal range Wes Masters " mood (mental status exam) frustrated, worried Wes Masters " mental status assessment, speech activity normal flow, normal pace, normal pressure, normal rate, normal tone, normal volume, spontaneous Wes Masters " mental status assessment, motor activity normal gait, normal posture Wes Masters " behavior (mental status exam) appropriate, candid, cooperative, good eye contact, polite, responsive, tearful Wes Masters " mental appearance (mental status exam) adequate hygiene, appropriate dress, looks like stated age, danial Harvey Masters mental status assessment, judgment good Wes Masters " insight (mental status exam) good Wes Masters " Mental Status Exam: intelligence adequate fund of information, intact memory processes, oriented to person, oriented to place, oriented to time, oriented to situation, oriented to reality Wes Masters " hallucinations none Wes Masters " thought content (mental status exam) (E&M) lucid Wes Masters " mental status assessment, process able to abstract, goal-directed, logical Wes Masters " mental status assessment, sensorium alert, attentive, clear Wes Masters " affect (mental status exam) congruent, euthymic, normal intensity, normal range Wes Masters " mood (mental status exam) angry, sad Wes Masters " mental status assessment, speech activity normal flow, normal pace, normal pressure, normal rate, normal tone, normal volume, spontaneous Wes Masters " mental status assessment, motor activity normal gait, normal posture Wes Masters " behavior (mental status exam) appropriate, candid, cooperative, good eye contact, polite, responsive, tearful Wes Masters " mental appearance (mental status exam) adequate hygiene, appropriate dress, looks like stated age, neat Wes Masters mental status assessment, judgment good Edwina Ingrid " insight (mental status exam) good Edwina Ingrid " Mental Status Exam: intelligence adequate fund of information, intact memory processes, oriented to person, oriented to place, oriented to time, oriented to situation, oriented to reality Edwina Ingrid " hallucinations none Edwina Ingrid " thought content (mental status exam) (E&M) lucid Edwina Ingrid " mental status assessment, process able to abstract, goal-directed, logical Edwina Ingrid " mental status assessment, sensorium alert, attentive, clear Edwina Ingrid " affect (mental status exam) congruent, euthymic, normal intensity, normal range Edwina Ingrid " mood (mental status exam) angry, sad Edwina Ingrid " mental status assessment, speech activity normal flow, normal pace, normal pressure, normal rate, normal tone, normal volume, spontaneous Edwina Ingrid " mental status assessment, motor activity normal gait, normal posture Edwina Ingrid " behavior (mental status exam) appropriate, candid, cooperative, good eye contact, polite, responsive, tearful Edwina Ingrid " mental appearance (mental status exam) adequate hygiene, appropriate dress, looks like stated age, neat Edwina Ingrid mental status assessment, judgment good Edwina Ingrid " insight (mental status exam) good Edwina Ingrid " Mental Status Exam: intelligence adequate fund of information, intact memory processes, oriented to person, oriented to place, oriented to time, oriented to situation, oriented to reality Edwina Ingrid " hallucinations none Edwina Ingrid " thought content (mental status exam) (E&M) lucid Edwina Ingrid " mental status assessment, process able to abstract, goal-directed, logical Edwina Ingrid " mental status assessment, sensorium alert, attentive, clear Edwina Ingrid " affect (mental status exam) congruent, euthymic, normal intensity, normal range Edwina Ingrid " mood (mental status exam) anxious, sad Edwina Ingrid " mental status assessment, speech activity normal flow, normal pace, normal pressure, normal rate, normal tone, normal volume, spontaneous Edwina Ingrid " mental status assessment, motor activity normal gait, normal posture Edwina Ingrid " behavior (mental status exam) appropriate, candid, cooperative, good eye contact, polite, responsive, tearful Edwina Ingrid " mental appearance (mental status exam) adequate hygiene, appropriate dress, looks like stated danial kraus mental status assessment, judgment good Edwina Ingrid " insight (mental status exam) good Edwina Ingrid " Mental Status Exam: intelligence adequate fund of information, intact memory processes, oriented to person, oriented to place, oriented to time, oriented to situation, oriented to reality Edwina Ingrid " hallucinations none Edwina Ingrid " thought content (mental status exam) (E&M) lucid Edwina Ingrid " mental status assessment, process able to abstract, goal-directed, logical Edwina Ingrid " mental status assessment, sensorium alert, attentive, clear Edwina Ingrid " affect (mental status exam) congruent, euthymic, normal intensity, normal range Edwina Ingrid " mood (mental status exam) anxious, sad Edwina Ingrid " mental status assessment, speech activity normal flow, normal pace, normal pressure, normal rate, normal tone, normal volume, spontaneous Edwina Ingrid " mental status assessment, motor activity normal gait, normal posture Edwina Ingrid " behavior (mental status exam) appropriate, candid, cooperative, good eye contact, polite, responsive, tearful Edwina Quintero " mental appearance (mental status exam) adequate hygiene, appropriate dress, looks like stated danial kraus mental status assessment, judgment good Wes Masters " insight (mental status exam) good Wes Masters " Mental Status Exam: intelligence adequate fund of information, intact memory processes, oriented to person, oriented to place, oriented to time, oriented to situation, oriented to reality Wes Masters " hallucinations none Wes Masters " thought content (mental status exam) (E&M) lucid Wes Masters " mental status assessment, process able to abstract, goal-directed, logical Wse Masters " mental status assessment, sensorium alert, attentive, clear Wes Masters " affect (mental status exam) congruent, euthymic, normal intensity, normal range Wes Masters " mood (mental status exam) anxious, pleasant Wes Masters " mental status assessment, speech activity normal flow, normal pace, normal pressure, normal rate, normal tone, normal volume, spontaneous Wes Masters " mental status assessment, motor activity normal gait, normal posture Wes Masters " behavior (mental status exam) appropriate, candid, cooperative, good eye contact, polite, responsive Wes Masters " mental appearance (mental status exam) adequate hygiene, appropriate dress, looks like stated danial kraus mental status assessment, judgment good Wes Masters " insight (mental status exam) good Wes Masters " Mental Status Exam: intelligence adequate fund of information, intact memory processes, oriented to person, oriented to place, oriented to time, oriented to situation, oriented to reality Wes Masters " hallucinations none Wes Masters " thought content (mental status exam) (E&M) lucid Wes Masters " mental status assessment, process able to abstract, goal-directed, logical Wes Masters " mental status assessment, sensorium alert, attentive, clear Wes Masters " affect (mental status exam) congruent, euthymic, normal intensity, normal range Wes Masters " mood (mental status exam) anxious, pleasant Wes Masters " mental status assessment, speech activity normal flow, normal pace, normal pressure, normal rate, normal tone, normal volume, spontaneous Wes Masters " mental status assessment, motor activity normal gait, normal posture Wes Masters " behavior (mental status exam) appropriate, candid, cooperative, good eye contact, polite, responsive Wes Masters " mental appearance (mental status exam) adequate hygiene, appropriate dress, looks like stated age, neat Wes Masters mental status assessment, judgment good Edwina Ingrid " insight (mental status exam) good Edwina Ingrid " Mental Status Exam: intelligence adequate fund of information, intact memory processes, oriented to person, oriented to place, oriented to time, oriented to situation, oriented to reality Edwina Ingrid " hallucinations none Edwina Ingrid " thought content (mental status exam) (E&M) lucid Edwina Ingrid " mental status assessment, process able to abstract, goal-directed, logical Edwina Ingrid " mental status assessment, sensorium alert, attentive, clear Edwina Ingrid " affect (mental status exam) congruent, euthymic, normal intensity, normal range Edwina Ingrid " mood (mental status exam) anxious, pleasant Edwina Ingrid " mental status assessment, speech activity normal flow, normal pace, normal pressure, normal rate, normal tone, normal volume, spontaneous Edwina Ingrid " mental status assessment, motor activity normal gait, normal posture Edwina Ingrid " behavior (mental status exam) appropriate, candid, cooperative, good eye contact, polite, responsive Edwina Ingrid " mental appearance (mental status exam) adequate hygiene, appropriate dress, looks like stated age, danial Quintero " anxiety worry a lot, irritability Edwina Ingrid mental status assessment, judgment good Wes Masters " insight (mental status exam) good Wes Masters " Mental Status Exam: intelligence adequate fund of information, intact memory processes, oriented to person, oriented to place, oriented to time, oriented to situation, oriented to reality Wes Masters " hallucinations none Wes Masters " thought content (mental status exam) (E&M) lucid Wes Masters " mental status assessment, process able to abstract, goal-directed, logical Wes Masters " mental status assessment, sensorium alert, attentive, clear Wes Masters " affect (mental status exam) congruent, euthymic, normal intensity, normal range Wes Masters " mood (mental status exam) pleasant Wes Masters " mental status assessment, speech activity normal flow, normal pace, normal pressure, normal rate, normal tone, normal volume, spontaneous Wes Masters " mental status assessment, motor activity normal gait, normal posture Wes Masters " behavior (mental status exam) appropriate, candid, cooperative, good eye contact, polite, responsive Wes Masters " mental appearance (mental status exam) adequate hygiene, appropriate dress, looks like stated age, danial Harvey Masters mental status assessment, judgment good Wes Masters " insight (mental status exam) good Wes Masters " Mental Status Exam: intelligence adequate fund of information, intact memory processes, oriented to person, oriented to place, oriented to time, oriented to situation, oriented to reality Wes Masters " hallucinations none Wes Masters " thought content (mental status exam) (E&M) lucid Wes Masters " mental status assessment, process able to abstract, goal-directed, logical Wes Masters " mental status assessment, sensorium alert, attentive, clear Wes Masters " affect (mental status exam) congruent, euthymic, normal intensity, normal range Wes Masters " mood (mental status exam) pleasant Wes Masters " mental status assessment, speech activity normal flow, normal pace, normal pressure, normal rate, normal tone, normal volume, spontaneous Wes Masters " mental status assessment, motor activity normal gait, normal posture Wes Masters " behavior (mental status exam) appropriate, candid, cooperative, good eye contact, polite, responsive Wes Masters " mental appearance (mental status exam) adequate hygiene, appropriate dress, looks like stated age, danial Harvey Masters mental status assessment, judgment good Wes Masters " insight (mental status exam) good Wes Masters " Mental Status Exam: intelligence adequate fund of information, intact memory processes, oriented to person, oriented to place, oriented to time, oriented to situation, oriented to reality Wes Masters " hallucinations none Wes Masters " thought content (mental status exam) (E&M) lucid Wes Masters " mental status assessment, process able to abstract, goal-directed, logical Wes Masters " mental status assessment, sensorium alert, attentive, clear Wes Masters " affect (mental status exam) congruent, euthymic, normal intensity, normal range Wes Masters " mood (mental status exam) pleasant Wes Masters " mental status assessment, speech activity normal flow, normal pace, normal pressure, normal rate, normal tone, normal volume, spontaneous Wes Masters " mental status assessment, motor activity normal gait, normal posture Wes Masters " behavior (mental status exam) appropriate, candid, cooperative, good eye contact, polite, responsive Wes Masters " mental appearance (mental status exam) adequate hygiene, appropriate dress, looks like stated danial kraus Masters mental status assessment, judgment good Wes Masters " insight (mental status exam) good Wes Masters " Mental Status Exam: intelligence adequate fund of information, intact memory processes, oriented to person, oriented to place, oriented to time, oriented to situation, oriented to reality Wes Masters " hallucinations none Wes Masters " thought content (mental status exam) (E&M) lucid Wes Masters " mental status assessment, process able to abstract, goal-directed, logical Wes Masters " mental status assessment, sensorium alert, attentive, clear Wes Masters " affect (mental status exam) congruent, euthymic, normal intensity, normal range Ews Masters " mood (mental status exam) pleasant Wes Masters " mental status assessment, speech activity normal flow, normal pace, normal pressure, normal rate, normal tone, normal volume, spontaneous Wes Masters " mental status assessment, motor activity normal gait, normal posture Wes Masters " behavior (mental status exam) appropriate, candid, cooperative, good eye contact, polite, responsive Wes Masters " mental appearance (mental status exam) adequate hygiene, appropriate dress, looks like stated agedanial Masters mental status assessment, judgment good Wes Masters " insight (mental status exam) good Wes Masters " Mental Status Exam: intelligence adequate fund of information, intact memory processes, oriented to person, oriented to place, oriented to time, oriented to situation, oriented to reality Wes Masters " hallucinations none Wes Masters " thought content (mental status exam) (E&M) lucid Wes Masters " mental status assessment, process able to abstract, goal-directed, logical Wes Masters " mental status assessment, sensorium alert, attentive, clear Wes Masters " affect (mental status exam) congruent, euthymic, normal intensity, normal range Wes Masters " mood (mental status exam) pleasant Wes Masters " mental status assessment, speech activity normal flow, normal pace, normal pressure, normal rate, normal tone, normal volume, spontaneous Wes Masters " mental status assessment, motor activity normal gait, normal posture Wes Masters " behavior (mental status exam) appropriate, candid, cooperative, good eye contact, polite, responsive Wes Masters " mental appearance (mental status exam) adequate hygiene, appropriate dress, looks like stated age, danial Harvey Masters mental status assessment, judgment good Wes Masters " insight (mental status exam) good Wes Masters " Mental Status Exam: intelligence adequate fund of information, intact memory processes, oriented to person, oriented to place, oriented to time, oriented to situation, oriented to reality Wes Masters " hallucinations none Wes Masters " thought content (mental status exam) (E&M) lucid Wes Masters " mental status assessment, process able to abstract, goal-directed, logical Wes Masters " mental status assessment, sensorium alert, attentive, clear Wes Masters " affect (mental status exam) congruent, euthymic, normal intensity, normal range Wes Masters " mood (mental status exam) pleasant Wes Masters " mental status assessment, speech activity normal flow, normal pace, normal pressure, normal rate, normal tone, normal volume, spontaneous Wes Masters " mental status assessment, motor activity normal gait, normal posture Wes Masters " behavior (mental status exam) appropriate, candid, cooperative, good eye contact, polite, responsive Wes Masters " mental appearance (mental status exam) adequate hygiene, appropriate dress, looks like stated age, danial Harvey Masters mental status assessment, judgment good Wes Masters " insight (mental status exam) good Wes Masters " Mental Status Exam: intelligence adequate fund of information, intact memory processes, oriented to person, oriented to place, oriented to time, oriented to situation, oriented to reality Wes Masters " hallucinations none Wes Masters " thought content (mental status exam) (E&M) lucid Wes Masters " mental status assessment, process able to abstract, goal-directed, logical Wes Masters " mental status assessment, sensorium alert, attentive, clear Wes Masters " affect (mental status exam) congruent, euthymic, normal intensity, normal range Wes Masters " mood (mental status exam) pleasant Wes Masters " mental status assessment, speech activity normal flow, normal pace, normal pressure, normal rate, normal tone, normal volume, spontaneous Wes Masters " mental status assessment, motor activity normal gait, normal posture Wes Masters " behavior (mental status exam) appropriate, candid, cooperative, good eye contact, polite, responsive Wes Masters " mental appearance (mental status exam) adequate hygiene, appropriate dress, looks like stated age, danial Harvey Masters Generalized Anxiety Disorder Questionnaire - Question 2 0 Nasralisa Mehta " Generalized Anxiety Disorder Questionnaire - Question 1 0 Nasra Russoado mental status assessment, judgment good Wes Masters " insight (mental status exam) good Wes Masters " Mental Status Exam: intelligence adequate fund of information, intact memory processes, oriented to person, oriented to place, oriented to time, oriented to situation, oriented to reality Wes Masters " hallucinations none Wes Masters " thought content (mental status exam) (E&M) lucid Wes Masters " mental status assessment, process able to abstract, goal-directed, logical Wes Masters " mental status assessment, sensorium alert, attentive, clear Wes Masters " affect (mental status exam) congruent, euthymic, normal intensity, normal range Wes Masters " mood (mental status exam) pleasant Wes Masters " mental status assessment, speech activity normal flow, normal pace, normal pressure, normal rate, normal tone, normal volume, spontaneous Wes Masters " mental status assessment, motor activity normal gait, normal posture Wes Masters " behavior (mental status exam) appropriate, candid, cooperative, good eye contact, polite, responsive Wes Masters " mental appearance (mental status exam) adequate hygiene, appropriate dress, looks like stated age, danial Castros mental status assessment, judgment good Wes Masters " insight (mental status exam) good Wes Masters " Mental Status Exam: intelligence adequate fund of information, intact memory processes, oriented to person, oriented to place, oriented to time, oriented to situation, oriented to reality Wes Masters " hallucinations none Wes Masters " thought content (mental status exam) (E&M) lucid Wes Masters " mental status assessment, process able to abstract, goal-directed, logical Wes Masters " mental status assessment, sensorium alert, attentive, clear Wes Masters " affect (mental status exam) congruent, euthymic, normal intensity, normal range Wes Masters " mood (mental status exam) pleasant Wes Masters " mental status assessment, speech activity normal flow, normal pace, normal pressure, normal rate, normal tone, normal volume, spontaneous Wes Masters " mental status assessment, motor activity normal gait, normal posture Wes Masters " behavior (mental status exam) appropriate, candid, cooperative, good eye contact, polite, responsive Wes Masters " mental appearance (mental status exam) adequate hygiene, appropriate dress, looks like stated age, danial Harvey Masters mental status assessment, judgment good Wes Masters " insight (mental status exam) good Wes Masters " Mental Status Exam: intelligence adequate fund of information, intact memory processes, oriented to person, oriented to place, oriented to time, oriented to situation, oriented to reality Wes Masters " hallucinations none Wes Masters " thought content (mental status exam) (E&M) lucid Wes Masters " mental status assessment, process able to abstract, goal-directed, logical Wes Masters " mental status assessment, sensorium alert, attentive, clear Wes Masters " affect (mental status exam) congruent, euthymic, normal intensity, normal range Wes Masters " mood (mental status exam) pleasant Wes Masters " mental status assessment, speech activity normal flow, normal pace, normal pressure, normal rate, normal tone, normal volume, spontaneous Wes Masters " mental status assessment, motor activity normal gait, normal posture Wes Masters " behavior (mental status exam) appropriate, candid, cooperative, good eye contact, polite, responsive Wes Masters " mental appearance (mental status exam) adequate hygiene, appropriate dress, looks like stated age, danial Harvey Masters mental status assessment, judgment good Wes Masters " insight (mental status exam) good Wes Masters " Mental Status Exam: intelligence adequate fund of information, intact memory processes, oriented to person, oriented to place, oriented to time, oriented to situation, oriented to reality Wes Masters " hallucinations none Wes Masters " thought content (mental status exam) (E&M) lucid Wes Masters " mental status assessment, process able to abstract, goal-directed, logical Wes Masters " mental status assessment, sensorium alert, attentive, clear Wes Masters " affect (mental status exam) congruent, euthymic, normal intensity, normal range Ews Masters " mood (mental status exam) pleasant Wes Masters " mental status assessment, speech activity normal flow, normal pace, normal pressure, normal rate, normal tone, normal volume, spontaneous Wes Masters " mental status assessment, motor activity normal gait, normal posture Wes Masters " behavior (mental status exam) appropriate, candid, cooperative, good eye contact, polite, responsive Wes Masters " mental appearance (mental status exam) adequate hygiene, appropriate dress, looks like stated age, danial Harvey Masters mental status assessment, judgment good Wes Masters " insight (mental status exam) good Wes Masters " Mental Status Exam: intelligence adequate fund of information, intact memory processes, oriented to person, oriented to place, oriented to time, oriented to situation, oriented to reality Wes Masters " hallucinations none Wes Masters " thought content (mental status exam) (E&M) lucid Wes Masters " mental status assessment, process able to abstract, goal-directed, logical Wes Masters " mental status assessment, sensorium alert, attentive, clear Wes Masters " affect (mental status exam) congruent, euthymic, normal intensity, normal range Wes Masters " mood (mental status exam) pleasant Wes Masters " mental status assessment, speech activity normal flow, normal pace, normal pressure, normal rate, normal tone, normal volume, spontaneous Wes Masters " mental status assessment, motor activity normal gait, normal posture Wes Masters " behavior (mental status exam) appropriate, candid, cooperative, good eye contact, polite, responsive Wes Masters " mental appearance (mental status exam) adequate hygiene, appropriate dress, looks like stated age, danial Harvey Masters assessment of judgment and insight E&M intact Gurdeep Meza " assessment of mood and affect E&M no depression, anxiety, or agitation Gurdeep Meza " Generalized Anxiety Disorder Questionnaire - Question 2 1 Florencemichelle Wilkerson " Generalized Anxiety Disorder Questionnaire - Question 1 1 Florence Wilkerson mental status assessment, judgment good Wes Masters " insight (mental status exam) good Wes Masters " Mental Status Exam: intelligence adequate fund of information, intact memory processes, oriented to person, oriented to place, oriented to time, oriented to situation, oriented to reality Wes Masters " hallucinations none Wes Masters " thought content (mental status exam) (E&M) lucid Wes Masters " mental status assessment, process able to abstract, goal-directed, logical Wes Masters " mental status assessment, sensorium alert, attentive, clear Wes Masters " affect (mental status exam) congruent, euthymic, normal intensity, normal range Wes Masters " mood (mental status exam) pleasant Wes Masters " mental status assessment, speech activity normal flow, normal pace, normal pressure, normal rate, normal tone, normal volume, spontaneous Wes Masters " mental status assessment, motor activity normal gait, normal posture Wes Masters " behavior (mental status exam) appropriate, candid, cooperative, good eye contact, polite, responsive Wes Masters " mental appearance (mental status exam) adequate hygiene, appropriate dress, looks like stated age, danial Harvey Masters mental status assessment, judgment good Wes Masters " insight (mental status exam) good Wes Masters " Mental Status Exam: intelligence adequate fund of information, intact memory processes, oriented to person, oriented to place, oriented to time, oriented to situation, oriented to reality Wes Masters " hallucinations none Wes Masters " thought content (mental status exam) (E&M) lucid Wes Masters " mental status assessment, process able to abstract, goal-directed, logical Wes Masters " mental status assessment, sensorium alert, attentive, clear Wse Masters " affect (mental status exam) congruent, euthymic, normal intensity, normal range Wes Masters " mood (mental status exam) pleasant Wes Masters " mental status assessment, speech activity normal flow, normal pace, normal pressure, normal rate, normal tone, normal volume, spontaneous Wes Masters " mental status assessment, motor activity normal gait, normal posture Wes Masters " behavior (mental status exam) appropriate, candid, cooperative, good eye contact, polite, responsive Wes Masters " mental appearance (mental status exam) adequate hygiene, appropriate dress, looks like stated age, danial Harvey Masters mental status assessment, judgment good Wes Masters " insight (mental status exam) good Wes Masters " Mental Status Exam: intelligence adequate fund of information, intact memory processes, oriented to person, oriented to place, oriented to time, oriented to situation, oriented to reality Wes Masters " hallucinations none Wes Masters " thought content (mental status exam) (E&M) lucid Wes Masters " mental status assessment, process able to abstract, goal-directed, logical Wes Masters " mental status assessment, sensorium alert, attentive, clear Wes Masters " affect (mental status exam) congruent, euthymic, normal intensity, normal range Wes Masters " mood (mental status exam) pleasant Wes Masters " mental status assessment, speech activity normal flow, normal pace, normal pressure, normal rate, normal tone, normal volume, spontaneous Wse Masters " mental status assessment, motor activity normal gait, normal posture Wes Masters " behavior (mental status exam) appropriate, candid, cooperative, good eye contact, polite, responsive Wes Masters " mental appearance (mental status exam) adequate hygiene, appropriate dress, looks like stated age, danial Harvey Masters mental status assessment, judgment good Wes Masters " insight (mental status exam) good Wes Masters " Mental Status Exam: intelligence adequate fund of information, intact memory processes, oriented to person, oriented to place, oriented to time, oriented to situation, oriented to reality Wes Masters " hallucinations none Wes Masters " thought content (mental status exam) (E&M) lucid Wes Masters " mental status assessment, process able to abstract, goal-directed, logical Wes Masters " mental status assessment, sensorium alert, attentive, clear Wes Masters " affect (mental status exam) congruent, euthymic, normal intensity, normal range Wes Masters " mood (mental status exam) pleasant Wes Masters " mental status assessment, speech activity normal flow, normal pace, normal pressure, normal rate, normal tone, normal volume, spontaneous Wes Masters " mental status assessment, motor activity normal gait, normal posture Wes Masters " behavior (mental status exam) appropriate, candid, cooperative, good eye contact, polite, responsive Wes Masters " mental appearance (mental status exam) adequate hygiene, appropriate dress, looks like stated age, danial Harvey Masters mental status assessment, judgment good Wes Masters " insight (mental status exam) good Wes Masters " Mental Status Exam: intelligence adequate fund of information, intact memory processes, oriented to person, oriented to place, oriented to time, oriented to situation, oriented to reality Wes Masters " hallucinations none Wes Masters " thought content (mental status exam) (E&M) lucid Wes Masters " mental status assessment, process able to abstract, goal-directed, logical Wes Masters " mental status assessment, sensorium alert, attentive, clear Wes Masters " affect (mental status exam) congruent, euthymic, normal intensity, normal range Wes Masters " mood (mental status exam) pleasant Wes Masters " mental status assessment, speech activity normal flow, normal pace, normal pressure, normal rate, normal tone, normal volume, spontaneous Wes Masters " mental status assessment, motor activity normal gait, normal posture Wes Masters " behavior (mental status exam) appropriate, candid, cooperative, good eye contact, polite, responsive Wes Masters " mental appearance (mental status exam) adequate hygiene, appropriate dress, looks like stated age, danial Harvey Masters assessment of judgment and insight E&M intact Hillaryluiz Sanchez " assessment of mood and affect E&M no depression, anxiety, or agitation Hillary Sanchez " Generalized Anxiety Disorder Questionnaire - Question 2 0 Alice Bravo " Generalized Anxiety Disorder Questionnaire - Question 1 0 Alice Bravo mental status assessment, judgment good Wes Masters " insight (mental status exam) good Wes Masters " Mental Status Exam: intelligence adequate fund of information, intact memory processes, oriented to person, oriented to place, oriented to time, oriented to situation, oriented to reality Wes Masters " hallucinations none Wes Masters " thought content (mental status exam) (E&M) lucid Wes Masters " mental status assessment, process able to abstract, goal-directed, logical Wes Masters " mental status assessment, sensorium alert, attentive, clear Wes Masters " affect (mental status exam) congruent, euthymic, normal intensity, normal range Wes Masters " mood (mental status exam) pleasant Wes Masters " mental status assessment, speech activity normal flow, normal pace, normal pressure, normal rate, normal tone, normal volume, spontaneous Wes Masters " mental status assessment, motor activity normal gait, normal posture Wes Masters " behavior (mental status exam) appropriate, candid, cooperative, good eye contact, polite, responsive Wes Masters " mental appearance (mental status exam) adequate hygiene, appropriate dress, looks like stated age, danial Castros mental status assessment, judgment good Wes Masters " insight (mental status exam) good Wes Masters " Mental Status Exam: intelligence adequate fund of information, intact memory processes, oriented to person, oriented to place, oriented to time, oriented to situation, oriented to reality Wes Masters " hallucinations none Wes Masters " thought content (mental status exam) (E&M) lucid Wes Masters " mental status assessment, process able to abstract, goal-directed, logical Wes Masters " mental status assessment, sensorium alert, attentive, clear Wes Masters " affect (mental status exam) congruent, euthymic, normal intensity, normal range Wes Masters " mood (mental status exam) pleasant Wes Masters " mental status assessment, speech activity normal flow, normal pace, normal pressure, normal rate, normal tone, normal volume, spontaneous Wes Masters " mental status assessment, motor activity normal gait, normal posture Wes Masters " behavior (mental status exam) appropriate, candid, cooperative, good eye contact, polite, responsive Wes Masters " mental appearance (mental status exam) adequate hygiene, appropriate dress, looks like stated age, danial Harvey Masters mental status assessment, judgment good Wes Masters " insight (mental status exam) good Wes Masters " Mental Status Exam: intelligence adequate fund of information, intact memory processes, oriented to person, oriented to place, oriented to time, oriented to situation, oriented to reality Wes Masters " hallucinations none Wes Masters " thought content (mental status exam) (E&M) lucid Wes Masters " mental status assessment, process able to abstract, goal-directed, logical Wes Masters " mental status assessment, sensorium alert, attentive, clear Wes Masters " affect (mental status exam) congruent, normal intensity, normal range, irritable Wes Masters " mood (mental status exam) frustrated Wes Masters " mental status assessment, speech activity normal flow, normal pace, normal pressure, normal rate, normal tone, normal volume, spontaneous Wes Masters " mental status assessment, motor activity normal gait, normal posture Wes Masters " behavior (mental status exam) appropriate, candid, cooperative, good eye contact, polite, responsive Wes Masters " mental appearance (mental status exam) adequate hygiene, appropriate dress, looks like stated age, danial Castros mental status assessment, judgment good Wes Masters " insight (mental status exam) good Wes Masters " Mental Status Exam: intelligence adequate fund of information, intact memory processes, oriented to person, oriented to place, oriented to time, oriented to situation, oriented to reality Wes Masters " hallucinations none Wes Masters " thought content (mental status exam) (E&M) lucid Wes Masters " mental status assessment, process able to abstract, goal-directed, logical Wes Masters " mental status assessment, sensorium alert, attentive, clear Wes Masters " affect (mental status exam) congruent, normal intensity, normal range, irritable Wes Masters " mood (mental status exam) frustrated Wes Masters " mental status assessment, speech activity normal flow, normal pace, normal pressure, normal rate, normal tone, normal volume, spontaneous Wes Masters " mental status assessment, motor activity normal gait, normal posture Wes Masters " behavior (mental status exam) appropriate, candid, cooperative, good eye contact, polite, responsive Wes Masters " mental appearance (mental status exam) adequate hygiene, appropriate dress, looks like stated danial kraus Masters mental status assessment, judgment good Winderlyon Rebolledo " insight (mental status exam) good Winderlyon Rebolledo " Mental Status Exam: intelligence adequate fund of information, intact memory processes, oriented to person, oriented to place, oriented to time, oriented to situation, oriented to reality Winderlyon Rebolledo " hallucinations none Winderlyon Rebolledo " thought content (mental status exam) (E&M) lucid Quangerlyandrade Rebolledo " mental status assessment, process able to abstract, goal-directed, logical Winderlyon Rebolledo " mental status assessment, sensorium alert, attentive, clear Winderlyon Rebolledo " affect (mental status exam) congruent, normal intensity, normal range, irritable Winderlyon Rebolledo " mood (mental status exam) frustrated Winderlyon Rebolledo " mental status assessment, speech activity normal flow, normal pace, normal pressure, normal rate, normal tone, normal volume, spontaneous Winderlyon Rebolledo " mental status assessment, motor activity normal gait, normal posture Winderlyon Rebolledo " behavior (mental status exam) appropriate, candid, cooperative, good eye contact, polite, responsive Quangerlyon Rebolledo " mental appearance (mental status exam) adequate hygiene, appropriate dress, looks like stated age, danial Marina Rebolledo mental status assessment, judgment good Winderlyon Rebolledo " insight (mental status exam) good Winderlyon Rebolledo " Mental Status Exam: intelligence adequate fund of information, intact memory processes, oriented to person, oriented to place, oriented to time, oriented to situation, oriented to reality Winderlyon Rebolledo " hallucinations none Winderlyon Rebolledo " thought content (mental status exam) (E&M) lucid Claudialyandrade Rebolledo " mental status assessment, process able to abstract, goal-directed, logical Winderlyon Rebolledo " mental status assessment, sensorium alert, attentive, clear Winderlyon Rebolledo " affect (mental status exam) congruent, normal intensity, normal range, irritable Marina Rebolledo " mood (mental status exam) angry, frustrated Marina Rebolledo " mental status assessment, speech activity normal flow, normal pace, normal pressure, normal rate, normal tone, normal volume, spontaneous Marina Rebolledo " mental status assessment, motor activity normal gait, normal posture Marina Rebolledo " behavior (mental status exam) appropriate, candid, cooperative, good eye contact, polite, responsive Marina Rebolledo " mental appearance (mental status exam) adequate hygiene, appropriate dress, looks like stated age, neat Marina Rebolledo mental status assessment, judgment good Wes Masters " insight (mental status exam) good Wes Masters " Mental Status Exam: intelligence adequate fund of information, intact memory processes, oriented to person, oriented to place, oriented to time, oriented to situation, oriented to reality Wes Masters " hallucinations none Wse Masters " thought content (mental status exam) (E&M) lucid Wes Masters " mental status assessment, process able to abstract, goal-directed, logical Wes Masters " mental status assessment, sensorium alert, attentive, clear Wes Masters " affect (mental status exam) congruent, normal intensity, normal range, irritable Wes Masters " mood (mental status exam) angry, frustrated Wes Masters " mental status assessment, speech activity normal flow, normal pace, normal pressure, normal rate, normal tone, normal volume, spontaneous Wes Masters " mental status assessment, motor activity normal gait, normal posture Wes Masters " behavior (mental status exam) appropriate, candid, cooperative, good eye contact, polite, responsive Wes Masters " mental appearance (mental status exam) adequate hygiene, appropriate dress, looks like stated age, neat Wes Masters mental status assessment, judgment good Wes Masters " insight (mental status exam) good Wes Masters " Mental Status Exam: intelligence adequate fund of information, intact memory processes, oriented to person, oriented to place, oriented to time, oriented to situation, oriented to reality Wes Masters " hallucinations none Wes Masters " thought content (mental status exam) (E&M) lucid Wes Masters " mental status assessment, process able to abstract, goal-directed, logical Wes Masters " mental status assessment, sensorium alert, attentive, clear Wes Masters " affect (mental status exam) congruent, normal intensity, normal range, irritable Wes Masters " mood (mental status exam) happy Wes Masters " mental status assessment, speech activity normal flow, normal pace, normal pressure, normal rate, normal tone, normal volume, spontaneous Wes Masters " mental status assessment, motor activity normal gait, normal posture Wes Masters " behavior (mental status exam) appropriate, candid, cooperative, good eye contact, polite, responsive Wes Masters " mental appearance (mental status exam) adequate hygiene, appropriate dress, looks like stated age, danial Wes Masters mental status assessment, judgment good Wes Masters " insight (mental status exam) good Wes Masters " Mental Status Exam: intelligence adequate fund of information, intact memory processes, oriented to person, oriented to place, oriented to time, oriented to situation, oriented to reality Wes Masters " hallucinations none Wes Masters " thought content (mental status exam) (E&M) lucid Wes Masters " mental status assessment, process able to abstract, goal-directed, logical Wes Masters " mental status assessment, sensorium alert, attentive, clear Wes Masters " affect (mental status exam) congruent, normal intensity, normal range, irritable Wes Masters " mood (mental status exam) happy Wes Masters " mental status assessment, speech activity normal flow, normal pace, normal pressure, normal rate, normal tone, normal volume, spontaneous Wes Masters " mental status assessment, motor activity normal gait, normal posture Wes Masters " behavior (mental status exam) appropriate, candid, cooperative, good eye contact, polite, responsive Wes Masters " mental appearance (mental status exam) adequate hygiene, appropriate dress, looks like stated age, danial Wes Masters mental status assessment, judgment good Wes Masters " insight (mental status exam) good Wes Masters " Mental Status Exam: intelligence adequate fund of information, intact memory processes, oriented to person, oriented to place, oriented to time, oriented to situation, oriented to reality Wes Masters " hallucinations none Wes Masters " thought content (mental status exam) (E&M) lucid Wes Masters " mental status assessment, process able to abstract, goal-directed, logical Wes Masters " mental status assessment, sensorium alert, attentive, clear Wes Masters " affect (mental status exam) congruent, normal intensity, normal range, irritable Wes Masters " mood (mental status exam) happy Wes Masters " mental status assessment, speech activity normal flow, normal pace, normal pressure, normal rate, normal tone, normal volume, spontaneous Wes Masters " mental status assessment, motor activity normal gait, normal posture Wes Masters " behavior (mental status exam) appropriate, candid, cooperative, good eye contact, polite, responsive Wes Masters " mental appearance (mental status exam) adequate hygiene, appropriate dress, looks like stated age, danial Harvey Masters mental status assessment, judgment good Wes Masters " insight (mental status exam) good Wes Masters " Mental Status Exam: intelligence adequate fund of information, intact memory processes, oriented to person, oriented to place, oriented to time, oriented to situation, oriented to reality Wes Masters " hallucinations none Wes Masters " thought content (mental status exam) (E&M) lucid Wes Masters " mental status assessment, process able to abstract, goal-directed, logical Wes Masters " mental status assessment, sensorium alert, attentive, clear Wes Masters " affect (mental status exam) congruent, normal intensity, normal range, irritable Wes Masters " mood (mental status exam) happy Wes Masters " mental status assessment, speech activity normal flow, normal pace, normal pressure, normal rate, normal tone, normal volume, spontaneous Wes Masters " mental status assessment, motor activity normal gait, normal posture Wes Masters " behavior (mental status exam) appropriate, candid, cooperative, good eye contact, polite, responsive Wes Masters " mental appearance (mental status exam) adequate hygiene, appropriate dress, looks like stated age, danial Harvey Masters mental status assessment, judgment good Marina Rebolledo " insight (mental status exam) good Quangerbrenda Rebolledo " Mental Status Exam: intelligence adequate fund of information, intact memory processes, oriented to person, oriented to place, oriented to time, oriented to situation, oriented to reality Marina Rebolledo " hallucinations none Marnia Rebolledo " thought content (mental status exam) (E&M) lucid Marina Rebolledo " mental status assessment, process able to abstract, goal-directed, logical Alexanderon Rebolledo " mental status assessment, sensorium alert, attentive, clear Quangerruddyon Rebolledo " affect (mental status exam) congruent, normal intensity, normal range, irritable Windalexis Rebolledo " mood (mental status exam) happy Marina Rebolledo " mental status assessment, speech activity normal flow, normal pace, normal pressure, normal rate, normal tone, normal volume, spontaneous Marina Rebolledo " mental status assessment, motor activity normal gait, normal posture Windalexis Rebolledo " behavior (mental status exam) appropriate, candid, cooperative, good eye contact, polite, responsive Marina Rebolledo " mental appearance (mental status exam) adequate hygiene, appropriate dress, looks like stated age, neat Marina Rebolledo " anxiety worry a lot, irritability, panic attacks Marina Rebolledo mental status assessment, judgment good Wes Masters " insight (mental status exam) good Wes Masters " Mental Status Exam: intelligence adequate fund of information, intact memory processes, oriented to person, oriented to place, oriented to time, oriented to situation, oriented to reality Wes Masters " hallucinations none Wes Masters " thought content (mental status exam) (E&M) lucid Wes Masters " mental status assessment, process able to abstract, goal-directed, logical Wes Masters " mental status assessment, sensorium alert, attentive, clear Wes Masters " affect (mental status exam) congruent, euthymic, normal intensity, normal range Wes Masters " mood (mental status exam) happy Wes Masters " mental status assessment, speech activity normal flow, normal pace, normal pressure, normal rate, normal tone, normal volume, spontaneous Wes Masters " mental status assessment, motor activity normal gait, normal posture Wes Masters " behavior (mental status exam) appropriate, candid, cooperative, good eye contact, polite, responsive Wes Masters " mental appearance (mental status exam) adequate hygiene, appropriate dress, looks like stated age, neat Wes Masters mental status assessment, judgment good Wes Masters " insight (mental status exam) good Wes Masters " Mental Status Exam: intelligence adequate fund of information, intact memory processes, oriented to person, oriented to place, oriented to time, oriented to situation, oriented to reality Wes Masters " hallucinations none Wes Masters " thought content (mental status exam) (E&M) lucid Wes Masters " mental status assessment, process able to abstract, goal-directed, logical Wes Masters " mental status assessment, sensorium alert, attentive, clear Wes Masters " affect (mental status exam) congruent, euthymic, normal intensity, normal range Wes Masters " mood (mental status exam) happy Wes Masters " mental status assessment, speech activity normal flow, normal pace, normal pressure, normal rate, normal tone, normal volume, spontaneous Wes Masters " mental status assessment, motor activity normal gait, normal posture Wes Masters " behavior (mental status exam) appropriate, candid, cooperative, good eye contact, polite, responsive Wes Masters " mental appearance (mental status exam) adequate hygiene, appropriate dress, looks like stated age, neat Wes Masters " anxiety worry a lot, irritability, panic attacks Wes Masters MEDICAL EQUIPMENT No Information Available FAMILY HISTORY No Information Available INSURANCE PROVIDERS Payer name Policy type / Coverage type Covered alliance party ID [employer] [id number] ADVANCE DIRECTIVES No Information Available TREATMENT PLAN Name return to clinic Date Name Drug Screen, Urine (9 drugs+ ETOH) ([facility]) Drug & ETOH Screen, Serum ([facility]) Drug Screen, Urine ([facility]) QuantiFERON TB Gold (In Tube) Sedimentation Rate-[place]gren Rheumatoid Arthritis Factor HCV Antibody HIV 1/2 ANTIGEN/ANTIBODY, FOURTH GENERATION W/RFL Chlamydia/GC Amplification RPR, Rfx Qn RPR/Confirm TP TSH Rfx on Abnormal to Free T4 Hemoglobin A1c Lipid Panel Comp. Metabolic Panel (14) CBC With Differential/Platelet Rheumatoid Arthritis Factor LUCILA w/Reflex if Positive Vitamin D, 25-Hydroxy RPR, Rfx Qn RPR/Confirm TP HIV-1/O/2 Antibodies, Preliminary Test with Confirmation HCV Antibody HBsAg Screen Chlamydia/GC Amplification TSH+Free T4 Hemoglobin A1c Lipid Panel Comp. Metabolic Panel (14) CBC With Differential/Platelet Psychotherapy 45 (38-52*) min - 27341 (with patient and/or family member) Est Patient Detailed - 06202 Est Patient Detailed - 43644 Est Patient Detailed - 88744 Est Patient Detailed - 54261 Est Patient Detailed - 44343 Behavioral Health - Psychological Testing Est Patient Detailed - 74144 Psychotherapy 45 (38-52*) min - 06603 (with patient and/or family member) Est Patient Detailed - 16081 Psychotherapy 45 (38-52*) min - 99268 (with patient and/or family member) Est Patient Exp Problem - 63166 Est Patient Detailed - 63547 Est Patient Detailed - 43478 Psychotherapy 45 (38-52*) min - 25445 (with patient and/or family member) Psychotherapy 45 (38-52*) min - 16390 (with patient and/or family member) Psychotherapy 60 (53+*) min - 94192 (with patient and/or family member) Est Patient Detailed - 22985 Est Patient Detailed - 58860 Diagnostic evaluation (no medical) - 13383 Est Patient Detailed - 62627 Est Patient Exp Problem - 98511 Est Patient Exp Problem - 34801 Est Patient Exp Problem - 20078 Est Patient Exp Problem - 91957 Est Patient Exp Problem - 87153 Est Patient Exp Problem - 70248 Est Patient Exp Problem - 32340 Est Patient Exp Problem - 87349 Est Patient Exp Problem - 92874 Est Patient Exp Problem - 44870 Est Patient Exp Problem - 67517 Est Patient Exp Problem - 98124 Urine Drug Screen - In House Urine Drug Screen - In House Urine Drug Screen - In House Handling of specimen for transfer Venipuncture Urine Drug Screen - In House Urinalysis - Dip only - In House Influenza - Adult - Injection TDAP Admin of Vaccine - Injection - Each Add'l Admin of Vaccine - Injection - 1 Est Patient Detailed - 75095 Est Patient Exp Problem - 28040 Est Patient Exp Problem - 86973 Nutrition - Internal Est Patient Exp Problem - 32737 Est Patient Exp Problem - 21247 Est Patient Exp Problem - 98060 Est Patient Exp Problem - 78000 Est Patient Problem Focus - 31248 Handling of specimen for transfer Venipuncture Est Patient Exp Problem - 91598 Est Patient Exp Problem - 64458 Est Patient Exp Problem - 85104 Est Patient Exp Problem - 23383 Psychotherapy 45 (38-52*) min - 40986 (with patient and/or family member) Psychotherapy 45 (38-52*) min - 66979 (with patient and/or family member) Est Patient Exp Problem - 09180 Est Patient Exp Problem - 99261 Est Patient Exp Problem - 95922 Est Patient Exp Problem - 40892 Est Patient Detailed - 90494 Diagnostic evaluation (no medical) - 03803 Est Patient Detailed - 24805 Diagnostic evaluation with medical - 23783 HISTORY OF PROCEDURES Procedure Date Procedure Name Provider Procedure Notes Status Psychotherapy 45 (38-52*) min - 99163 (with patient and/or family member) Edwina Quintero completed Psychotherapy 45 (38-52*) min - 88912 (with patient and/or family member) Edwina Ingrid completed Psychotherapy 45 (38-52*) min - 32235 (with patient and/or family member) Edwinatitus Quintero completed Psychotherapy 45 (38-52*) min - 43643 (with patient and/or family member) Edwina Ingrid completed Psychotherapy 45 (38-52*) min - 85720 (with patient and/or family member) Edwina Quintero completed Psychotherapy 60 (53+*) min - 17762 (with patient and/or family member) Edwina Quintero completed Diagnostic evaluation (no medical) - 03912 Edwina Quintero completed Urine Drug Screen - In House Wes Gonzalez UDS on or about 11/07/15. completed Urine Drug Screen - In [place] Wes Gonzalez Drug Screen on or about 10/17/2015 completed Urine Drug Screen - In House Wes Gonzalez completed Venipuncture Oumou George completed Urine Drug Screen - In House Oumou George completed Urinalysis - Dip only - In House Oumou George completed Venipuncture Hillary Sanchez completed Psychotherapy 45 (38-52*) min - 54911 (with patient and/or family member) Marina Rebolledo completed Psychotherapy 45 (38-52*) min - 47333 (with patient and/or family member) Marina Rebolledo completed Diagnostic evaluation (no medical) - 72740 Marina Rebolledo completed Diagnostic evaluation with medical - 48031 Wes Gonzalez completed GOALS No Information Available HEALTH CONCERNS No Information Available
[2019-09-16] MEDS ORDERED: ACETAMINOPHEN 325 MG TAB PO ONE (03:00)
[2019-09-16 03:21] LABS: INFLUENZAE A&B ANTIGEN (RAPID) NEGATIVE (NEGATIVE); STREPTOCOCCUS GRP A ANTIGEN NEGATIVE (NEGATIVE)
--- NOTE | 2019-09-16 03:41 | Diagnostic Imaging Report ---
EXAMINATION: CHEST SINGLE (PORTABLE) INDICATION: ^NON PRODUCTIVE COUGH ^[id number] ^[id number] COMPARISON: 06/27/2019 FINDINGS: AP view TUBES and LINES: None. LUNGS: Limited by body habitus. Lungs are well inflated. There is no evidence of pneumonia or pulmonary edema. Unchanged right apical scarring. PLEURA: No significant pleural effusion or pneumothorax. HEART AND MEDIASTINUM: The cardiomediastinal silhouette is unremarkable. BONES AND SOFT TISSUES: No acute osseous lesion. Soft tissues are unremarkable. UPPER ABDOMEN: No free air under the diaphragm. IMPRESSION: No acute thoracic abnormality. Signed by: Dr. Preston Goodwin MD on 09/16/2019 3:38 AM
== END 2019-09-16 03:58 | disposition home or self-care (01) ==
LOC: ER 02:47
DX: R50.9 Fever, unspecified (principal); R05 Cough; R53.1 Weakness; J02.0 Streptococcal pharyngitis; B34.9 Viral infection, unspecified
CPT/HCPCS: 71045; 83518; 87070; 87400; 99283